=== PATIENT | male | born 1945 | race Caucasian/White ===

== ENCOUNTER → 2018-02-12 07:55 | Outpatient (CLI) | payer MEDICARE, OTHER, SELFPAY ==
--- NOTE | 2018-02-12 07:57 | DI.MRI.S_ITS ---
PROCEDURE: MR LUMBAR SPINE WO CON INDICATIONS: low back pain TECHNIQUE: Noncontrast sagittal T1 spin echo and T2 fast echo, sagittal STIR, axial T1 and T2 fast spin echo through the lumbar spine. In this patient, oblique coronal images were also obtained through the sacrum. COMPARISON: [facility], CR, L-SPINE 6V INCLUDING BENDING, 08/12/2013, 15:43. [facility], CR, XR LUMBAR SPINE MIN 4V, 02/12/2018, 8:55. FINDINGS: Image quality: Excellent. Alignment and Curvature: Moderate grade 1 anterolisthesis is seen at the L5-S1 level. There is a pars defect seen on the left (series 3 image 12), yet no right pars defect is seen at L5. Minimal retrolisthesis is seen at the T12-L1, L1-L2, L2-L3, and the L3-L4 levels. Minimal anterolisthesis is seen at the L4-L5 level. Bone Marrow: Marrow is of normal overall signal. No acute vertebral body compression fractures. Mild anterior wedge deformities are seen involving the T9-T12 levels. Spinal Cord: Conus medullaris terminates at the L1 level. Visualized cord demonstrates normal signal and size. Paraspinous Soft Tissues: No paravertebral masses. T12-L1: Moderate loss of disc height is seen. Loss of disc signal is seen. Moderate disc bulge is seen, which is eccentric left. Moderate bilateral neural foraminal narrowing is seen, right worse than left. L1-L2: The disc height is well-preserved. Loss of disc signal is seen at this level. Reactive marrow endplate changes are seen which are hypointense on T1-weighted imaging and hyperintense on T2 weighted imaging, which is most consistent with edema (Modic type I changes). Mild to moderate disc bulge is seen at this level. There is moderate right-sided and moderate to severe left-sided neural foraminal narrowing seen. A degree of impingement is seen upon the exiting left L1 nerve root. Mild central canal narrowing is seen. L2-L3: The disc height is well-preserved. Loss of disc signal is seen at this level. Moderate disc bulge is seen, which is eccentric to the right. Mild to moderate facet hypertrophy is seen. There is at least moderate bilateral neural foraminal narrowing seen, right worse than left. A mild degree of impingement can be seen on exiting right L2 nerve root. Mild to moderate central canal narrowing is seen. L3-L4: The disc height is well-preserved. Loss of disc signal is seen at this level. Moderate loss of disc height is seen. Loss of disc signal is seen. Moderate to prominent facet hypertrophy is seen. There is at least moderate bilateral neural foraminal narrowing seen, left worse than right. Moderate central canal narrowing is seen. L4-L5: Mild loss of disc height is seen. Loss of disc signal is seen. Moderate generalized disc bulge is seen. Prominent facet hypertrophy is seen at this level. There is moderate right-sided and moderate to severe left-sided neural foraminal narrowing seen. A degree of impingement can be seen upon the exiting left L4 nerve root. Moderate central canal narrowing is seen. L5-S1: Moderate to severe loss of disc height and disc signal are again mild to moderate disc bulge is seen. At least moderate bilateral neural foraminal narrowing seen. There is a degree of impingement seen upon the exiting nerve roots. Moderate central canal narrowing is seen. Sacrum: No abnormal sacral bone marrow signal can be seen. No sacral deformity is seen. The visualized sacral plexus is unremarkable. IMPRESSION: Multiple levels of lumbar spine degenerative change are seen, which are overall most prominent at the L5-S1 level. Dictated by: Juan Luis Wellington M.D. on 02/12/2018 at 8:55 Approved by: Juan Luis Wellington M.D. on 02/12/2018 at 9:04
--- NOTE | 2018-02-12 09:19 | DI.RAD.S_ITS ---
PROCEDURE: XR LUMBAR SPINE MIN 4V INDICATIONS: SPONDYLOSIS TECHNIQUE: 5 views of the lumbar spine were acquired. COMPARISON: [facility], MR, MR LUMBAR SPINE WO CON, 02/12/2018, 8:24. [facility], CR, L-SPINE 6V INCLUDING BENDING, 08/12/2013, 15:43. FINDINGS: Bones: There are 5 lumbar-type vertebral bodies. The lowest intervertebral disk space is designated as L5-S1. The vertebral body heights are well-maintained without evidence to suggest an acute compression fracture. The bone mineralization is within normal limits. Severe multilevel degenerative changes of the lumbar spine are more prominent involving the lower lumbar facet joints. Prominent areas of disc height loss and disc osteophyte complexes are present. There is grade 1 anterolisthesis of L4 and L5 and L5 on S1. There probably are unilateral left pars defects at L4 and L5. However, please note that the pars interarticularis regions at these locations are difficult to evaluate given the degree of degenerative change. No definitive pars defects on the right at L4 and L5 are evident. Moderate degenerative changes of the sacroiliac joints are present. There are degenerative changes of the pubis symphysis. Mild degenerative changes of the hips are present. Soft tissues: The soft tissues of the imaged abdomen and pelvis are within normal limits. IMPRESSION: 1. Severe degenerative changes of the lumbar spine. 2. Grade 1 spondylolisthesis of L4/5 and L5/S1 may be related to unilateral left L4 and L5 pars defects. Dictated by: Jesu Montgomery M.D. on 02/13/2018 at 8:32 Approved by: Jesu Montgomery M.D. on 02/13/2018 at 8:38
== END ==
PROVIDERS: PCP Internal Medicine; Visit Provider Physical Medicine & Rehabilitation
DX: M47.27 Other spondylosis with radiculopathy, lumbosacral region (principal); M48.062 Spinal stenosis, lumbar region with neurogenic claudication; M54.5 Low back pain; M43.16 Spondylolisthesis, lumbar region; M43.17 Spondylolisthesis, lumbosacral region; M51.17 Intervertebral disc disorders with radiculopathy, lumbosacral region; M51.16 Intervertebral disc disorders with radiculopathy, lumbar region
CPT/HCPCS: 72110; 72148

== ENCOUNTER 2018-03-03 13:43 | Outpatient (CLI) | payer MEDICARE, OTHER, SELFPAY ==
[2018-03-03] VITALS (11 sets, daily range): BP systolic 106–127; BP diastolic 51–89; PULSE 60–66; RESP 16–18; TEMP 36.7; O2SAT 95–100
--- NOTE | 2018-03-03 13:45 | DI.RAD.S_ITS ---
PROCEDURE: PAIN L INTERLAMINAR/CAUDAL INJ INDICATIONS: SPINAL STENOSIS FINDINGS: Fluoroscopic spot filming was performed to verify placement of spinal needles at the L4-5 dorsal midline level(s), as labeled on the films. Appropriate location(s) of the needle tip(s) was confirmed by injection of iodinated contrast. IMPRESSION: Successful dorsal midline translaminar needle tip localization for epidural steroid injection dorsally. Dictated by: Mihai Hernandez M.D. on 03/03/2018 at 16:36 Approved by: Mihai Hernandez M.D. on 03/03/2018 at 16:36
--- NOTE | 2018-03-03 13:46 | PM.PROC.1 ---
Procedures Date/Time Date of procedure: 03/03/18 Time of procedure: 14:04 General Procedure description: PROVIDER: Jose Martinez DO Operative Note PREOP DIAGNOSIS 1. HNP WITH RADICULAR FEATURES, 2. MULTILEVEL CENTRAL STENOSIS, POST OP DIAGNOSIS 1. HNP WITH RADICULAR FEATURES, 2. MULTILEVEL CENTRAL STENOSIS PROCEDURES 1. FLUORSCOPICALLY GUIDED CONTRAST CONTROLLED INTERLAMINAR EPIDURAL STEROID INJECTION -L4/5 PHYSICIAN: Jose Martinez DO INDICATIONs: Dean is referred by Dr. Wade for treatment of Bilateral Foraminal Stenosis R>L LE symptoms. FINDINGS Multilevel Central Spinal Stenosis with Nerve Root Compression DESCRIPTION OF PROCEDURE Fluoroscopically guided, contrast-controlled L4/5 translaminar epidural steroid injection. Following denial of allergy and review of potential side effects and complications, including, but not necessarily limited to, infection, allergic reaction, local tissue breakdown, temporary as well as permanent nerve injury, paralysis, stroke and possible , the patient indicated that the patient understood and agreed to proceed. An informed consent document was signed by the patient, witnessed by a nurse, and placed in the patient's chart. Additionally, other treatment options including modalities, medications, and physical therapy were reviewed with the patient. After review of previous anaesthesic history and IV conscious sedation the patient was deemed safe to proceed with todays procedure with IV conscious sedation as ASA class II designation. Safety time-out was performed to confirm patient ID, procedure to be performed and site of procedure. IV sedation was accomplished with a combination of 4mg was administered by the RN after DO order, titrated to patient comfort during the course of the procedure while the patient remained responsive to all verbal commands In the prone position, following sterile prep and drape of the lumbar region, the L4/5 translaminar space was identified fluoroscopically. The skin was anesthetized via a 25-gauge, 1.5-inch needle with 1% lidocaine solution. At this point, a 22-gauge short bevel spinal needle was atraumatically introduced and advanced under fluoroscopic guidance into the region of the L4/5 translaminar space. Depth was confirmed on lateral view. Radiological data, including multiple fluoroscopic views of the lumbar spine, reveal a spinal needle at the L4/5 translaminar space. Lateral views then show placement of the needle in the epidural space. Subsequent views show contrast material flowing superiorly and inferiorly in the epidural space. No vascular or intrathecal uptake is observed. At this point, using loss of resistance technique with saline and air, the epidural space was entered. This was confirmed following negative aspiration with injection of approximately 1.5 cc of Isovue 200, showing excellent epidural flow without vascular or intrathecal uptake. At this point, 1 cc of 1% lidocaine solution combined with 3 cc or 20 mg of dexamethasone and 80mg Depo medrol was injected without incident. The patient tolerated the procedure well without signs or symptoms of complications prior to transfer to the recovery area continued monitoring without incident. The patient was then transferred to the recovery area where they were observed for an appropriate period of time after the injection. The patient reported a VAS score of 6 prior to the procedure and a post-procedure VAS of 0. Total Fluoroscopy Time: 11.8 seconds, 8.99 mGy Total Conscious Sedation Time: 24min POST OP INSTRUCTIONS The patient was provided a Pain Log to continue to record their response to the target-specific procedure prior to follow-up visit with their referring physician. Additionally, specific post-injection care instructions and a contact number to our office were provided if concerns arise regarding possible complications associated with the procedure are suspected. Jose Martinez, DO Complications: none
--- NOTE | 2018-03-03 14:07 | P.PCN_ITS ---
Procedures Date/Time Date of procedure: 03/03/18 Time of procedure: 14:04 General Procedure description: PROVIDER: Jose Martinez DO Operative Note PREOP DIAGNOSIS 1. HNP WITH RADICULAR FEATURES, 2. MULTILEVEL CENTRAL STENOSIS, POST OP DIAGNOSIS 1. HNP WITH RADICULAR FEATURES, 2. MULTILEVEL CENTRAL STENOSIS PROCEDURES 1. FLUORSCOPICALLY GUIDED CONTRAST CONTROLLED INTERLAMINAR EPIDURAL STEROID INJECTION -L4/5 PHYSICIAN: Jose Martinez DO INDICATIONs: Dean is referred by Dr. Wade for treatment of Bilateral Foraminal Stenosis R>L LE symptoms. FINDINGS Multilevel Central Spinal Stenosis with Nerve Root Compression DESCRIPTION OF PROCEDURE Fluoroscopically guided, contrast-controlled L4/5 translaminar epidural steroid injection. Following denial of allergy and review of potential side effects and complications, including, but not necessarily limited to, infection, allergic reaction, local tissue breakdown, temporary as well as permanent nerve injury, paralysis, stroke and possible , the patient indicated that the patient understood and agreed to proceed. An informed consent document was signed by the patient, witnessed by a nurse, and placed in the patient's chart. Additionally, other treatment options including modalities, medications, and physical therapy were reviewed with the patient. After review of previous anaesthesic history and IV conscious sedation the patient was deemed safe to proceed with todays procedure with IV conscious sedation as ASA class II designation. Safety time-out was performed to confirm patient ID, procedure to be performed and site of procedure. IV sedation was accomplished with a combination of 4mg was administered by the RN after DO order , titrated to patient comfort during the course of the procedure while the patient remained responsive to all verbal commands In the prone position, following sterile prep and drape of the lumbar region, the L4/5 translaminar space was identified fluoroscopically. The skin was anesthetized via a 25-gauge, 1.5-inch needle with 1% lidocaine solution. At this point, a 22-gauge short bevel spinal needle was atraumatically introduced and advanced under fluoroscopic guidance into the region of the L4/5 translaminar space. Depth was confirmed on lateral view. Radiological data, including multiple fluoroscopic views of the lumbar spine, reveal a spinal needle at the L4/5 translaminar space. Lateral views then show placement of the needle in the epidural space. Subsequent views show contrast material flowing superiorly and inferiorly in the epidural space. No vascular or intrathecal uptake is observed. At this point, using loss of resistance technique with saline and air, the epidural space was entered. This was confirmed following negative aspiration with injection of approximately 1.5 cc of Isovue 200, showing excellent epidural flow without vascular or intrathecal uptake. At this point, 1 cc of 1 % lidocaine solution combined with 3 cc or 20 mg of dexamethasone and 80mg Depo medrol was injected without incident. The patient tolerated the procedure well without signs or symptoms of complications prior to transfer to the recovery area continued monitoring without incident. The patient was then transferred to the recovery area where they were observed for an appropriate period of time after the injection. The patient reported a VAS score of 6 prior to the procedure and a post- procedure VAS of 0. Total Fluoroscopy Time: 11.8 seconds, 8.99 mGy Total Conscious Sedation Time: 24min POST OP INSTRUCTIONS The patient was provided a Pain Log to continue to record their response to the target-specific procedure prior to follow-up visit with their referring physician. Additionally, specific post-injection care instructions and a contact number to our office were provided if concerns arise regarding possible complications associated with the procedure are suspected. Jose Martinez, DO Complications: none
[2018-03-03] MEDS: MIDAZOLAM 5 MG/5 ML VIAL IV (14:30)
[2018-03-03] MEDS: IOPAMIDOL 15 ML VIAL 3 ML INJ (14:34)
[2018-03-03] MEDS: BUPIVACAINE 0.25% (PF) VIAL 2 ML INJ (14:34)
[2018-03-03] MEDS: methylPREDNISolone acetate 80 MG/ML VIAL INJ (14:35)
[2018-03-03] MEDS: DEXAMETHASONE 10 MG/ML VIAL 20 MG INJ (14:35)
--- NOTE | 2018-03-03 14:37 | PC.NURSE ---
transport to post op area, stable condition, via w/c
--- NOTE | 2018-03-03 15:00 | PC.NURSE ---
pt arrived via wheelchair, awake and able to transfer from W/C to chair. pt able to drink coffee and reports pain relief.
== END 2018-03-03 15:15 ==
LOC: RAD 13:44
PROVIDERS: PCP Internal Medicine; Visit Provider Physical Medicine & Rehabilitation
DX: M48.062 Spinal stenosis, lumbar region with neurogenic claudication (principal); M51.16 Intervertebral disc disorders with radiculopathy, lumbar region
CPT/HCPCS: 62323; 99152; J1040; J1100; J2250

== ENCOUNTER → 2018-04-03 15:58 | Outpatient (CLI) | payer MEDICARE, OTHER, SELFPAY ==
--- NOTE | 2018-04-03 16:00 | DI.RAD.S_ITS ---
PROCEDURE: XR CERVICAL SPINE 4V OR 5V INDICATIONS: eval TECHNIQUE: 5 views of the cervical spine acquired. COMPARISON: None. FINDINGS: Bones: No fractures or dislocations to the C7 level. There is moderate degenerative disc disease at C3-C4, C5-C6 and C6-C7. Bilateral facet arthropathy scattered in cervical spine. Oblique images demonstrate mild bony foraminal stenoses at C6-C7 bilaterally. Soft tissues: No prevertebral soft tissue swelling. IMPRESSION: 1. Degenerative disc and facet disease. 2. Mild bilateral foraminal stenosis at C6-C7. Dictated by: Macarena Umanzor M.D. on 04/03/2018 at 17:01 Approved by: Macarena Umanzor M.D. on 04/03/2018 at 17:03
== END ==
PROVIDERS: PCP Internal Medicine; Visit Provider Physical Medicine & Rehabilitation
DX: M47.812 Spondylosis without myelopathy or radiculopathy, cervical region (principal); M50.31 Other cervical disc degeneration, high cervical region; M48.02 Spinal stenosis, cervical region
CPT/HCPCS: 72050

== ENCOUNTER 2018-04-28 09:31 | Outpatient (CLI) | payer MEDICARE, OTHER, SELFPAY ==
[2018-04-28] VITALS (9 sets, daily range): BP systolic 107–147; BP diastolic 57–77; PULSE 57–85; RESP 16–21; TEMP 35.8; O2SAT 93–99
--- NOTE | 2018-04-28 09:33 | DI.RAD.S_ITS ---
PROCEDURE: PAIN L/S TRANSFORAMINAL INJECT INDICATIONS: SPINAL STENOSIS FINDINGS: Fluoroscopic spot filming was performed to verify placement of spinal needles at the L4-L5 level(s), as labeled on the films. Appropriate location(s) of the needle tip(s) was confirmed by injection of iodinated contrast. Dictated by: Francisco Moore M.D. on 04/28/2018 at 14:09 Approved by: Francisco Moore M.D. on 04/28/2018 at 14:09
[2018-04-28] MEDS: MIDAZOLAM 5 MG/5 ML VIAL IV (10:18)
[2018-04-28] MEDS: IOPAMIDOL 15 ML VIAL 3 ML INJ (10:24)
[2018-04-28] MEDS: BUPIVACAINE 0.25% (PF) VIAL 2 ML INJ (10:24)
[2018-04-28] MEDS: DEXAMETHASONE 10 MG/ML VIAL 20 MG INJ (10:25)
[2018-04-28] MEDS: methylPREDNISolone acetate 80 MG/ML VIAL INJ (10:25)
--- NOTE | 2018-04-28 10:42 | PC.NURSE ---
pt tolerated procedure well, assisted off table with one person stand by assist. pt alert. Taken via w/c to pre procedure room for continued monitoring with Jojo IZAGUIRRE
--- NOTE | 2018-04-28 10:46 | P.PCN_ITS ---
Procedures Date/Time Date of procedure: 04/28/18 Time of procedure: 10:45 General Procedure description: PREOP DIAGNOSIS 1. FORMAINAL STENOSIS WITH LE SYMPTOMS POST OP DIAGNOSIS 1. FORMAINAL STENOSIS WITH LE SYMPTOMS PROCEDURES 1. FLUOROSCOPICALLY GUIDED CONTRAST CONTROLLED TRANSFORAMINAL EPIDURAL STEROID INJECTION - LEFT L4/5 PHYSICIAN: Jose Martinez DO INDICATIONS: Dean is referred by for treatment of Foraminal Stenosis with Left LE Symptoms FINDINGS Foraminal Nerve Root Compression secondary to disc disease and facet hypertrophy DESCRIPTION OF PROCEDURE: Following denial of allergy and review of potential side effects and complications, including, but not necessarily limited to, infection, allergic reaction, local tissue breakdown, stroke, temporary or permanent nerve injury, paralysis, and possible , the patient indicated that the patient understood and agreed to proceed. An informed consent document was signed by the patient, witnessed by a nurse, and placed in the patient's chart. Additionally, other treatment options including medications, modalities, and physical therapy were reviewed with the patient. After review of previous anaesthesic history and IV conscious sedation the patient was deemed safe to proceed with todays procedure with IV conscious sedation as ASA class II designation. Safety time-out was performed to confirm patient ID, procedure to be performed and site of procedure. IV sedation was accomplished with a combination of 5mg of Versed administered by the RN after DO order, titrated to patient comfort during the course of the procedure while the patient remained responsive to all verbal commands In the prone position following sterile prep and drape of the lumbar region, the left L4/5 posterior neuroforamen was identified fluoroscopically. The skin was anesthetized via a 25-gauge 1.5-inch needle with 1% lidocaine solution. At this point, a 25-gauge 3.5-inch spinal needle was atraumatically introduced and advanced under fluoroscopic guidance through the posterior left L4/5 neuroforamen to approximately the anterior aspect of the canal. Depth was confirmed on lateral view. Following negative aspiration, injection of approximately 1.5 cc of Isovue 200 under live fluoroscopy in the AP view confirmed excellent flow along the nerve root, into the epidural space without vascular or intrathecal uptake observed Radiological data, including multiple fluoroscopic views of the lumbosacral spine, reveal a spinal needle at the left L4/5 posterior neuroforamen. Subsequent views show flow of contrast material flowing superiorly and inferiorly along the nerve root confirming epidural flow. Subsequently, a test dose of 1.5 cc of 1% lidocaine solution was administered and patient was observed for two minutes for signs or symptoms of complications , including abdominal pain, shortness of breath, bilateral upper or lower extremity weakness, nausea and vomiting, prior to steroid injection. At this point, a total of 3 cc or 20 mg of dexamethasone and 80mg Depo Medrol was injected without incident. The procedure tolerated the procedure well without signs or symptoms of complications prior to transfer to the recovery area continued monitoring without incident. The patient was then transferred to the recovery area where they were observed for an appropriate time after the injection. The patient reported a VAS score of 7 prior to the procedure and a post- procedure VAS of 0. Total Fluoroscopy Time: 20.9 seconds Total Conscious Sedation Time: 24min POST OP INSTRUCTIONS The patient was provided a Pain Log to continue to record their response to the target-specific procedure prior to follow-up visit with their referring physician. Additionally, specific post-injection care instructions and a contact number to our office were provided if concerns arise regarding possible complications associated with the procedure are suspected. Jose Martinez DO Complications: none
--- NOTE | 2018-04-29 17:14 | PC.NURSE ---
Follow up call made post one day injection. He was ecstatic to get 6 hours of sleep last night without his feet bothering him once. He was a little concerned that he couldn't remember part of yesterday's visit here for the injection. I reassured him it was related to the medication we gave him that it has that kind of side effect.
== END 2018-04-28 11:16 | disposition home or self-care (01) ==
PROVIDERS: PCP Internal Medicine; Visit Provider Physical Medicine & Rehabilitation
DX: M48.062 Spinal stenosis, lumbar region with neurogenic claudication (principal); M51.16 Intervertebral disc disorders with radiculopathy, lumbar region; M43.17 Spondylolisthesis, lumbosacral region; M47.27 Other spondylosis with radiculopathy, lumbosacral region
CPT/HCPCS: 64483; 99152; 99153; J1040; J1100; J2250

== ENCOUNTER 2018-12-31 10:21 | Outpatient (CLI) | payer MEDICARE, OTHER, SELFPAY ==
[2018-12-31] VITALS (7 sets, daily range): BP systolic 106–137; BP diastolic 50–78; PULSE 58–69; RESP 16; TEMP 36.4; O2SAT 93–97
--- NOTE | 2018-12-31 10:22 | DI.RAD.S_ITS ---
PROCEDURE: PAIN L INTERLAMINAR/CAUDAL INJ INDICATIONS: RADICULOPATHY FINDINGS: Fluoroscopic spot filming was performed to verify placement of spinal needles at the L5-S1 level(s), as labeled on the films. Appropriate location(s) of the needle tip(s) was confirmed by injection of iodinated contrast. Dictated by: Francisco Moore M.D. on 12/31/2018 at 12:13 Approved by: Francisco Moore M.D. on 12/31/2018 at 12:13
[2018-12-31] MEDS: MIDAZOLAM 5 MG/5 ML VIAL IV (11:10)
[2018-12-31] MEDS: fentaNYL 100 MCG/2 ML INJ 50 MCG IV (11:10)
[2018-12-31] MEDS: BETAMETHASONE 30 MG/5 ML MDV 6 MG INJ (11:18)
[2018-12-31] MEDS: DEXAMETHASONE 10 MG/ML VIAL 20 MG INJ (11:18)
[2018-12-31] MEDS: IOPAMIDOL 15 ML VIAL 3 ML INJ (11:18)
[2018-12-31] MEDS: BUPIVACAINE 0.25% (PF) VIAL 2 ML INJ (11:18)
--- NOTE | 2018-12-31 11:29 | PC.NURSE ---
pt tolerated procedure well. Able to get off the table with 2 person standby assist. Transferred pt to pre procedure room for continued monitoring with me. We arrived at 1136.
--- NOTE | 2018-12-31 11:32 | PM.PROC.1 ---
Procedures Date/Time Date of procedure: 12/31/18 Time of procedure: 11:32 General Procedure description: PROVIDER: Jose Martinez DO Operative Note PREOP DIAGNOSIS 1. HNP WITH RADICULAR FEATURES, 2. MULTILEVEL CENTRAL STENOSIS, POST OP DIAGNOSIS 1. HNP WITH RADICULAR FEATURES, 2. MULTILEVEL CENTRAL STENOSIS, PROCEDURES 1. FLUORSCOPICALLY GUIDED CONTRAST CONTROLLED INTERLAMINAR EPIDURAL STEROID INJECTION - L5/S1 PHYSICIAN: Jose Martinez DO INDICATIONS Dean is referred by for treatment of Bilateral Foraminal Stenosis L>R LE symptoms. FINDINGS Multilevel Central Spinal Stenosis with Nerve Root Compression DESCRIPTION OF PROCEDURE Fluoroscopically guided, contrast-controlled L5/S1 translaminar epidural steroid injection. Following review of allergy and review of potential side effects and complications, including, but not necessarily limited to, infection, allergic reaction, local tissue breakdown, temporary as well as permanent nerve injury, paralysis, stroke and possible , the patient indicated that the patient understood and agreed to proceed. An informed consent document was signed by the patient, witnessed by a nurse, and placed in the patient's chart. Additionally, other treatment options including modalities, medications, and physical therapy were reviewed with the patient. After review of previous anaesthesic history and IV conscious sedation the patient was deemed safe to proceed with todays procedure with IV conscious sedation as ASA class II designation. Safety time-out was performed to confirm patient ID, procedure to be performed and site of procedure. IV sedation was accomplished with a combination of 3mg of Versed and 50mcg of Fentanyl administered by the RN after DO order, titrated to patient comfort during the course of the procedure while the patient remained responsive to all verbal commands. In the prone position, following sterile prep and drape of the lumbar region, the L5/S1 translaminar space was identified fluoroscopically. The skin was anesthetized via a 25-gauge, 1.5-inch needle with 1% lidocaine solution. At this point, a 22-gauge short bevel spinal needle was atraumatically introduced and advanced under fluoroscopic guidance into the region of the L5/S1 translaminar space. Depth was confirmed on lateral view. Radiological data, including multiple fluoroscopic views of the lumbar spine, reveal a spinal needle at the L5/S1 translaminar space. Lateral views then show placement of the needle in the epidural space. Subsequent views show contrast material flowing superiorly and inferiorly in the epidural space. No vascular or intrathecal uptake is observed. At this point, using loss of resistance technique with saline and air, the epidural space was entered. This was confirmed following negative aspiration with injection of approximately 1.5 cc of Isovue 200, showing excellent epidural flow without vascular or intrathecal uptake. At this point, 1 cc of 1% lidocaine solution combined with 2cc or 20mg of dexamethasone was injected without incident. The patent tolerated the procedure without signs of symptoms of complications prior to transfer to the recovery area for further monitoring. The patient was then transferred to the recovery area where they were observed for an appropriate period of time after the injection. The patient reported a VAS score of 6 prior to the procedure and a post-procedure VAS of 0. Total Fluoroscopy Time: 11.8 seconds Total Conscious Sedation Time: 24min POST OP INSTRUCTIONS The patient was provided a Pain Log to continue to record their response to the target-specific procedure prior to follow-up visit with their referring physician. Additionally, specific post-injection care instructions and a contact number to our office were provided if concerns arise regarding possible complications associated with the procedure are suspected. Jose Martinez DO Complications: none
== END 2018-12-31 12:10 | disposition home or self-care (01) ==
LOC: RAD 10:22
PROVIDERS: PCP Internal Medicine; Visit Provider Physical Medicine & Rehabilitation
DX: M51.17 Intervertebral disc disorders with radiculopathy, lumbosacral region (principal); M48.07 Spinal stenosis, lumbosacral region; M47.27 Other spondylosis with radiculopathy, lumbosacral region
CPT/HCPCS: 62323; 99152; J0702; J1100; J2250; J3010

== ENCOUNTER → 2019-09-30 12:10 | Outpatient (CLI) | payer MEDICARE, OTHER, SELFPAY ==
--- NOTE | 2019-09-30 12:13 | DI.RAD.S_ITS ---
PROCEDURE: XR LUMBAR SPINE MIN 4V INDICATIONS: Lumbosacral spondylosis TECHNIQUE: 5 views of the lumbar spine were acquired. COMPARISON: [facility], MR, MR LUMBAR SPINE WO CON, 02/12/2018, 8:24. [facility], CR, XR LUMBAR SPINE MIN 4V, 02/12/2018, 8:55. FINDINGS: Bones: 5 nonrib-bearing vertebrae are present. Mild anterolisthesis of L4 on L5 and L5 on S1. L5 anterolisthesis measures approximately 1.1 cm, previously 0.8 cm. Minimal height loss of the T12 vertebral body similar to the prior exam. Multilevel disc space height loss most pronounced at T12-L1 and L1-L2. No suspicious bony lesions. Soft tissues: Overlying bowel gas pattern is normal. No suspicious soft tissue calcifications. Vascular calcifications. Oblique images: Left L5 pars defect better seen on prior MRI. IMPRESSION: Question of slight increased in anterolisthesis of L5 on S1. Moderate multilevel degenerative change. Dictated by: John Sharma M.D. on 09/30/2019 at 12:35 Approved by: John Sharma M.D. on 09/30/2019 at 12:41
== END ==
PROVIDERS: PCP Internal Medicine; Referring Provider Physical Medicine & Rehabilitation; Visit Provider Physical Medicine & Rehabilitation
DX: M43.17 Spondylolisthesis, lumbosacral region (principal); M43.16 Spondylolisthesis, lumbar region; M47.816 Spondylosis without myelopathy or radiculopathy, lumbar region
CPT/HCPCS: 72110

== ENCOUNTER → 2019-10-23 09:53 | Outpatient (CLI) | payer MEDICARE, OTHER, SELFPAY ==
[2019-10-24 07:32] LABS: COVID19 Sendout Not Detected (Not Detect)
== END ==
PROVIDERS: PCP Internal Medicine; Visit Provider Physician Assistant
DX: Z01.812 Encounter for preprocedural laboratory examination (principal)
CPT/HCPCS: 87635

== ENCOUNTER 2019-10-26 08:13 | Outpatient (CLI) | payer MEDICARE, OTHER, SELFPAY ==
[2019-10-26] VITALS (8 sets, daily range): BP systolic 101–133; BP diastolic 47–69; PULSE 55–64; RESP 15–16; TEMP 37.3; O2SAT 94–100
--- NOTE | 2019-10-26 08:15 | DI.RAD.S_ITS ---
PROCEDURE: PAIN L/SI FACET INJ/BLK 1STL INDICATIONS: SPONDYLOSIS FINDINGS: Fluoroscopic spot filming was performed to verify placement of spinal needles at the L4-L5, L5-S1 level(s), as labeled on the films. Appropriate location(s) of the needle tip(s) was confirmed by injection of iodinated contrast. Dictated by: Francisco Moore M.D. on 10/26/2019 at 10:33 Approved by: Francisco Moore M.D. on 10/26/2019 at 10:41
[2019-10-26] MEDS: fentaNYL 100 MCG/2 ML INJ 50 MCG IV (09:32)
[2019-10-26] MEDS: MIDAZOLAM 5 MG/5 ML VIAL IV (09:32)
[2019-10-26] MEDS: BUPIVACAINE 0.5% (PF) VIAL 2 ML INJ (09:37)
[2019-10-26] MEDS: IOPAMIDOL 15 ML VIAL 3 ML INJ (09:37)
[2019-10-26] MEDS: BETAMETHASONE 30 MG/5 ML MDV 12 MG INJ (09:38)
--- NOTE | 2019-10-26 09:39 | PC.NURSE ---
ASSISTING PT OFF TABLE AND TRANSPORTING TO POST PROC AREA IN STABLE CONDITION. PASSING RN CARE OF PT OFF TO DMITRIY GLASS.
--- NOTE | 2019-10-26 09:48 | P.PCN_ITS ---
Procedures Date/Time Date of procedure: 10/26/19 Time of procedure: 09:48 General Procedure description: PREOP DIAGNOSIS 1. FACET ARTHROPATHY, 2. AXIAL LBP, 3. MULTILEVEL DDD, POST OP DIAGNOSIS 1. FACET ARTHROPATHY, 2. AXIAL LBP, 3. MULTILEVEL DDD, PROCEDURES 1. FLUORSCOPICALLY GUIDED CONTRAST CONTROLLED FACET JOINT INJECTIONS RIGHT L4/5, L5/S1 SURGEON: DO EVITA Blackwood Dean is referred by for treatment of Axial LBP FINDINGS Multilevel Facet Arthropathy with Clinically significant axial LBP DESCRIPTION OF PROCEDURE Fluoroscopically guided, contrast-controlled right L4/5, L5/S1 facet joint injections. Following review of allergy and review of potential side effects and complications, including, but not necessarily limited to, infection, allergic reaction, local tissue breakdown, stroke, temporary or permanent nerve injury, paralysis, and possible , the patient indicated that the patient understood and agreed to proceed. An informed consent document was signed by the patient, witnessed by a nurse, and placed in the patient's chart. Additionally, other treatment options including medications, modalities, and physical therapy were reviewed with the patient. After review of previous anaesthesic history and IV conscious sedation the patient was deemed safe to proceed with todays procedure with IV conscious sedation as ASA class II designation. Safety time-out was performed to confirm patient ID, procedure to be performed and site of procedure. IV sedation was accomplished with a combination of 2mg of Versed and 50mcg of Fentanyl was administered by the RN after DO order, titrated to patient comfort during the course of the procedure while the patient remained responsive to all verbal commands. In the prone position, following sterile prep and drape of the lumbar region, the posterior aspect of the right L4/5, L5/S1 facet joints were identified fluoroscopically. The skin was anesthetized via a 25-gauge 1.5-inch needle with 1% lidocaine solution into the corresponding facet joints. At this point, a 22- gauge 3.5-inch spinal needle was atraumatically introduced and advanced under fluoroscopic guidance into the corresponding facet joints. Following negative aspiration, injections of approximately 0.2-cc of Isovue 200 confirmed interarticular placement without vascular uptake. Radiological data, including multiple fluoroscopic views of the lumbosacral spine, reveal a spinal needle at the right L4/5, L5/S1 facet joints. Subsequent views show flow of contrast material both superiorly and inferiorly within the joint space without vascular or intrathecal uptake. At this point, a total of 0.5 cc including a mixture of 0.25cc Marcaine and 0.25cc betamethasone was injected without complication into each of the corresponding facet joints. The procedure tolerated the procedure well without signs or symptoms of complications prior to transfer to the recovery area continued monitoring without incident. The patient was then transferred to the recovery area where they were observed for an appropriate period of time after the injection. The patient reported a VAS score of 7 prior to the procedure and a post-procedure VAS of 0. Total Fluoroscopy Time: 5seconds Total Conscious Sedation Time: 24min POST OP INSTRUCTIONS The patient was provided a Pain Log to continue to record their response to the target-specific procedure prior to follow-up visit with their referring physician. Additionally, specific post-injection care instructions and a contact number to our office were provided if concerns arise regarding possible complications associated with the procedure are suspected. Jose Martinez, Complications: none
--- NOTE | 2019-10-26 10:33 | PC.NURSE ---
arrived to pre proc room via [facility], assisted to chair by Jojo IZAGUIRRE. Resumed monitoring by DMITRIY Cassidy
== END 2019-10-26 10:08 | disposition home or self-care (01) ==
LOC: RAD 08:14
PROVIDERS: PCP Internal Medicine; Referring Provider Physical Medicine & Rehabilitation; Visit Provider Physical Medicine & Rehabilitation
DX: M47.816 Spondylosis without myelopathy or radiculopathy, lumbar region (principal); M47.817 Spondylosis without myelopathy or radiculopathy, lumbosacral region; M54.5 Low back pain
CPT/HCPCS: 64493; 64494; 99152; J0702; J2250; J3010

== ENCOUNTER → 2019-11-05 16:04 | Outpatient (CLI) | payer MEDICARE, OTHER, SELFPAY ==
--- NOTE | 2019-11-05 16:07 | DI.MRI.S_ITS ---
PROCEDURE: MR LUMBAR SPINE WO CON INDICATIONS: progressive LBP TECHNIQUE: Noncontrast sagittal T1 spin echo and T2 fast echo, sagittal STIR, axial T1 and T2 fast spin echo through the lumbar spine. In cases with scoliosis, additional coronal T2 fast spin echo may be performed. COMPARISON: [facility], MR, MR LUMBAR SPINE WO CON, 02/12/2018, 8:24. [facility], CR, XR LUMBAR SPINE MIN 4V, 09/30/2019, 12:08. FINDINGS: Image quality: Excellent. Alignment and Curvature: There is mild L4-L5 and L5-S1 anterolisthesis. There is mild T12-L1 and L1-L2 retrolisthesis. There is trace L2-L3 and L3-L4 retrolisthesis. Bone Marrow: Reactive endplate changes adjacent to the T12-L1, L1-L2, L4-L5 and L5-S1 discs. No acute vertebral body compression fractures. Spinal Cord: Conus medullaris terminates at the T12-L1 disc level. Visualized cord demonstrates normal signal and size. Paraspinous Soft Tissues: No paravertebral masses. T12-L1: Loss of disc signal and height. Moderate, diffuse disc bulge. Mild bilateral facet hypertrophy. Mild to moderate narrowing of the central canal. Moderate right and mild left neural foraminal narrowing. No neural compression. L1-L2: Loss of disc signal and height. Mild, diffuse disc bulge. Large central disc extrusion. Mild/moderate bilateral facet hypertrophy. Epidural lipomatosis. Severe narrowing of the central canal with compression of the nerve roots of the cauda equina. Moderate bilateral neural foraminal narrowing. L2-L3: Loss of disc signal. Mild, diffuse disc bulge. Mild to moderate bilateral facet hypertrophy. Moderate narrowing of the central canal. Moderate bilateral neural foraminal narrowing. No neural compression. L3-L4: Loss of disc signal. Mild, diffuse disc bulge. Mild to moderate bilateral facet hypertrophy. Moderate ligamentum flavum hypertrophy. Moderate to severe narrowing of the central canal. Moderate to severe right and moderate left neural foraminal narrowing. No neural compression. L4-L5: Loss of disc signal. Mild, diffuse disc bulge there is severe bilateral facet hypertrophy. Severe narrowing of the central canal with compression of the nerve roots of the cauda equina. Severe bilateral neural foraminal narrowing and compression of the exiting L4 nerve roots. L5-S1: Loss of disc signal and height. Mild, diffuse disc bulge. Moderate right and severe left facet hypertrophy. Left L5 pars interarticularis defect noted. No central stenosis. Severe bilateral neural foraminal narrowing with compression of the exiting bilateral L5 nerve roots. IMPRESSION: 1. Multilevel degenerative disc disease. 2. Multilevel facet arthropathy 3. Severe L1-L2 and L4-L5 central canal stenosis with compression of the nerve roots of cauda equina. Moderate to severe L3-L4 central canal narrowing. 4. Severe bilateral L4-L5 and L5-S1 neural foraminal narrowing with compression of the exiting bilateral L4 nerve roots and exiting bilateral L5 nerve roots. 5. Large L1-L2 central disc extrusion. 6. T12-L1, L1-L2 L4-L5 and L5-S1 degenerative spondylolisthesis. Dictated by: Zarina Duval MD, PhD on 11/05/2019 at 17:04 Approved by: Zarina Duval MD, PhD on 11/05/2019 at 17:11
== END ==
PROVIDERS: PCP Internal Medicine; Referring Provider Physical Medicine & Rehabilitation; Visit Provider Physical Medicine & Rehabilitation
DX: M54.5 Low back pain (principal); M48.061 Spinal stenosis, lumbar region without neurogenic claudication; M48.07 Spinal stenosis, lumbosacral region; M51.16 Intervertebral disc disorders with radiculopathy, lumbar region; M51.17 Intervertebral disc disorders with radiculopathy, lumbosacral region; M47.26 Other spondylosis with radiculopathy, lumbar region; M47.27 Other spondylosis with radiculopathy, lumbosacral region
CPT/HCPCS: 72148

== ENCOUNTER → 2019-12-16 13:43 | Outpatient (CLI) | payer MEDICARE, OTHER, SELFPAY ==
--- NOTE | 2019-12-16 | DI.MRI.S_ITS ---
PROCEDURE: MR KNEE RT WO CON INDICATIONS: Other tear of medial meniscus. Right knee pain TECHNIQUE: Noncontrast sagittal PD fast spin echo and T2 fast spin echo with fat saturation, sagittal 3-D FLASH with fat saturation; coronal T1 spin echo and PD fast spin echo with fat saturation, and axial PD fast spin echo with fat saturation through the knee. COMPARISON: None. FINDINGS: Image quality: Excellent. Menisci: Ill-defined macerated tear involving the body and posterior horn of the medial meniscus. There is partial extrusion and abnormal signal which extends to the inferior surface. There is also truncation of the free margin. Lateral meniscus intact. Cruciate ligaments: Anterior cruciate ligament appears intact. Posterior cruciate ligament appears intact. Medial structures: There is medial bowing of the medial collateral ligament, with mild internal signal changes and no complete rupture. There is adjacent soft tissue edema. The appearance could reflect reactive changes to medial compartment pathology, versus low-grade sprain of the MCL. Pes anserinus tendons appear grossly unremarkable. Semimembranosus tendon appears intact. Lateral structures: The lateral collateral ligament intact. Biceps femoris tendon appears intact. Popliteus tendon grossly unremarkable. Iliotibial band appears intact. Anterior structures: Quadriceps tendon intact. Medial and lateral patellofemoral ligaments intact. There is mild patellar tendinopathy. Prepatellar and superficial infrapatellar subcutaneous edema/fluid. Bones and cartilage: Within the medial compartment, areas of full thickness articular cartilage loss overlying the femur and tibia. There is reactive subchondral marrow edema. There is also subchondral marrow signal changes measuring approximately 5 mm raising the possibility of a small osteochondral defect involving the medial femoral condyle. Within the lateral compartment, mild diffuse surface fraying of the femoral and tibial articular cartilage without focal defect. Within the patellofemoral compartment, mild surface fraying of the cartilage overlying the lateral patellar facet. Joint space: Large joint effusion. Trace fluid between the semimembranosus and medial gastrocnemius without definite form cyst. No specific evidence of intra-articular loose body. IMPRESSION: Ill-defined complex tear involving the posterior horn and body of the medial meniscus with partial extrusion. Degenerative joint disease, most pronounced in the medial compartment. Large joint effusion. Patellar tendinopathy Small 5 mm subchondral marrow signal changes involving the medial femoral condyle raising possibility of superimposed small osteochondral defect/insufficiency fracture. Large joint effusion. Dictated by: Francisco Moore M.D. on 12/16/2019 at 15:47 Approved by: Francisco Moore M.D. on 12/16/2019 at 15:54
== END ==
PROVIDERS: PCP Internal Medicine; Referring Provider Orthopaedic Surgery; Visit Provider Orthopaedic Surgery
DX: S83.231A Complex tear of medial meniscus, current injury, right knee, initial encounter (principal); M25.561 Pain in right knee; M17.11 Unilateral primary osteoarthritis, right knee; M25.461 Effusion, right knee
CPT/HCPCS: 73721

== ENCOUNTER → 2020-03-25 09:39 | Outpatient (CLI) | payer MEDICARE, OTHER, SELFPAY ==
[2020-03-27 08:01] LABS: COVID19 Sendout Not Detected (Not Detect)
== END ==
PROVIDERS: PCP Internal Medicine; Visit Provider Physician Assistant
DX: Z11.59 Encounter for screening for other viral diseases (principal)
CPT/HCPCS: 87635

== ENCOUNTER 2020-03-28 06:13 | Inpatient (IN) | payer MEDICARE, OTHER, SELFPAY ==
[2020-03-22 13:58] VITALS: BMI 37.8
[2020-03-28] VITALS (18 sets, daily range): BP systolic 99–145; BP diastolic 43–75; PULSE 48–71; RESP 10–18; TEMP 35.7–36.6; O2SAT 91–97; BMI 37.8; BMI 38.2
--- NOTE | 2020-03-28 | DI.RAD.S_ITS ---
PROCEDURE: XR LUMBAR SPINE 2-3V INDICATIONS: L4-5, L5-S1 TLIF TECHNIQUE: 4 views of the lumbar spine were acquired. COMPARISON: [facility], MR, MR LUMBAR SPINE WO CON, 11/05/2019, 16:22. [facility], MR, MR KNEE RT WO CON, 12/16/2019, 13:50. [facility], CR, XR LUMBAR SPINE MIN 4V, 09/30/2019, 12:08. [facility], CR, XR LUMBAR SPINE MIN 4V, 02/12/2018, 8:55. FINDINGS: Bones: Postoperative evaluation during the performance of posterior fixation crossing from L4 through S1 utilizing transverse pedicle screws and vertical fixation rods. The initial imaging shows frontal and lateral projections documenting the placement of the posterior fixation devices and 2 interbody cage disc prosthesis devices at L4-5 and L5-S1, respectively. The 3rd image shows a metallic probe overlying the posterior elements at L1-2, just dorsal to the facet joint level. The final 5th image is partially obscured by radiodense material/devices from the L1-2 level inferiorly, with the metallic probe tip exactly at the midline from right-sided approach. Soft tissues: Overlying bowel gas pattern is normal. No suspicious soft tissue calcifications. IMPRESSION: Postoperative imaging as discussed, with initial views documenting placement of posterior fixation devices and interbody disc cage prosthesis devices crossing from L4 through S1. Subsequent additional localization at the dorsal L1-2 facet joint area near the midline from right-sided approach. Dictated by: Mihai Hernandez M.D. on 03/28/2020 at 12:54 Approved by: Mihai Hernandez M.D. on 03/28/2020 at 13:05
--- NOTE | 2020-03-28 07:21 | PM.PREOP ---
Pre-operative Note COVID-19 COVID-19 status: Negative Result date/Date tested (Pos, Neg/Pending): 03/25/20 Interval Note History & Physical reviewed/Exam performed by Physician: Yes Changes to H&P: No
[2020-03-28] MEDS: LACTATED RINGERS 1,000 ML 42 ML IV ×2 (07:35→09:15)
--- NOTE | 2020-03-28 07:43 | PM.OP.1 ---
Operative Date/Time/Diagnoses Date of procedure: 03/28/20 Time of procedure: 12:33 Pre-op diagnosis: Lumbar stenosis with radiculopathy Lumbar spondylolisthesis Post-op diagnosis: same Procedure & Clinicians Procedure: L4-5, L5-S1 TLIF (posterior/posterior interbody fusion) with cages L4, L5, S1 screws Iliac crest bone graft aspirate L1-2, L4-5, L5-S1 laminectomies Use of microscope Placement of epidural catheter Same procedure as scheduled: Yes Indications: [age] year old male with intractable pain from stenosis. They had failed conservative management and requested operative intervention. Risks and benefits of surgery were discussed and appropriate consents were obtained. Surgeon: Tam White Poultry Packer: Carmina Causey Anesthesia Type: General Operative Notes Findings: None Closure Type: primary Specimen(s): none sent Prosthetic devices, grafts, tissues, transplants, or devices: NuVasive MAS Reline screws Globus Rise cage Applied: catheter Estimated Blood Loss (mL): 20 Procedure in detail: The patient was brought to the operating room and intubated on the table. A time-out was performed. They were then rolled over to the well-padded Cl table in the prone position. Preoperative antibiotics were given. The back was prepped and draped in the standard sterile fashion. Using fluoroscopy, a 4 cm longitudinal incision was made to the well marked right of the midline. We used Bovie to come down to and split the lumbodorsal fascia. Using fluoroscopy and monitoring, we then percutaneously placed Jamshidi needles down the pedicles of L4, L5, and S1 on the right side. These were changed out to guidewires and then we tapped and then placed the NuVasive MAS Reline screw shanks. We then opened up the retractors and used Bovie to clear up the posterolateral gutter at L5-S1 as well as medially along the lamina to the spinous processes. A bur was used to decorticate the transverse process and the sacral ala. We brought in the microscope. Using a combination of bur and Kerrison rongeurs, a laminectomy was performed from the right side. We cleared over past the midline and carefully depressed the dura until we were able to decompress the opposite side. We cleared out the neural foramen with facetectomy. This completed the laminectomy at L5-S1. This was separate and distinct from the TLIF approach as we were decompressing the foramen. We then began the TLIF prep. We carefully cleaned up the remainder of the foramen until we could easily retract the exiting root as well as clearing medially below the dura and expose the disc space. The disc was prepped with bipolar and then an annulotomy was performed. We performed a diskectomy using a combination of paddles, michael, pituitaries, and curettes. We distracted the disc using a paddle and locked the retractor in an open position. We then filled the disc space with Osteocel bone graft. We then placed the globus rise cage under fluoroscopy and then filled this in with more bone graft. The distraction on the retractor was released to compress down. This completed the posterior interbody fusion portion of the TLIF at L5-S1. We then went up to the L4-5 level. We opened up the retractor and cleared out the gutter and medially. We decorticated the transverse process of L4. We used a combination of bur and Kerrison rongeur is to perform a right-sided laminectomy at L4-5. We carefully depressed the dura and cleared across the midline to clean out the canal. We cleared out the neural foramen with a facetectomy. This completed the laminectomy at L4-5. This was separate and distinct from a TLIF approach as we had to decompress extremely stenotic canal and foramen. We did began this TLIF prep. We cleaned the remainder of the foramen until we could easily retract the nerve root. We retracted the dura medially and prep the disc with bipolar. An annulotomy was performed. We performed a discectomy with paddle Michael pituitaries and curettes. We distracted the disc using a paddle and locked retractor in open position. We filled the space with bone graft and placed a globus rise cage under fluoroscopy in fill this in with more bone graft. This traction on the retractor was released. This completed the posterior interbody fusion portion of the TLIF at L4-5. We then placed the screw heads, yu, and locked down the set screws. The wound was copiously irrigated. A small stab incision was made over the PSIS. We used a Jamshidi needle to aspirate several mL of bone marrow from the pelvis. This was mixed with the remaining Osteocel and combined with all of the locally harvested bone graft and placed in the posterolateral gutter for the posterior fusion of the TLIF at L4-5 and L5-S1. We then went to the opposite side. Again using fluoroscopy, a 3 cm incision was made and Bovie was used to come down to split the fascia. Using neural monitoring and fluoroscopy, Jamshidi needles were advanced down the pedicles of L4, L5, and S1 on the left side. These were switched over guidewires, tapped, and screws placed. We then placed a yu and locked the set screws on this side. The wound was irrigated. The fascia was closed. We then went up to the L1-2 level. Using fluoroscopy for localization we just want up extending the right-sided incision another 2 cm. We used Bovie to split the fascia more medially. We then bluntly dissected the muscle splitting approach and placed a retractor and opened this up. The soft tissue was cleared up and a marker was placed and an x-ray was taken to confirm positioning. We then did a laminectomy at L1-2 from the right side with a bur and Kerrison rongeur. We swept the ball probe to make sure everything was open. An epidural catheter was prepped with 4 mL 0.5% Marcaine, 100 mg fentanyl, 4 mg Duramorph, and 1 mg of Stadol. The epidural was placed underneath the remaining L1 lamina and advanced cephalad approximately 6 cm. The wound was irrigated. We then removed the retractor. The fascia was closed. The epidural was injected without resistance and pulled. Vancomycin powder was placed in the wounds. The superficial and skin were closed. A sterile dressing was placed. The patient was then rolled over. He had not made urine during the case and just put a little bit of blood after the initial catheterization. The catheter was flushed during surgery with no urine output and then once he was rolled over to supine we flushed this again with no output. Dr. Simpson came to examine him with cystoscopy and placed a new Martinez catheter without any difficulty. Plan is to keep him on 48 hours of IV antibiotics as well as keep the catheter in for 48 hours. He was then extubated brought to recovery with no complications. Complications: none Post-operative Condition: stable Disposition: PACU Plan for aftercare: Inpatient. Up with PT.
[2020-03-28] MEDS: ACETAMINOPHEN 325 MG TABLET 975 MG PO (07:50)
[2020-03-28] MEDS: CEFAZOLIN 2 GM/100 ML FROZ.PIGGY IV ×3 (07:53→20:34)
--- NOTE | 2020-03-28 08:36 | SUR.OPER ---
Prone on spine table, head in foam head support, padded chest and pelvic supports, gel pad at knees, lower legs supported by pillows; nipples, genitalia and toes free of pressure, arms secured on foam padded arm boards at <90 degrees abduction. Tape over blanket at thigh secured to table.
[2020-03-28] MEDS: THROMBIN (RECOMBINANT) 5,000 UNIT VIAL 5000 UNIT TOP (08:49)
[2020-03-28] MEDS: VANCOMYCIN 1,000 MG VIAL 1000 MG TOP (08:49)
[2020-03-28] MEDS: SODIUM CHLORIDE 0.9% 1,000 ML, GENTAMICIN 80 MG IRR (08:49)
[2020-03-28] MEDS: BUPIVACAINE 0.5% (PF) 4 ML, MORPHINE-PF 4 MG, BUTORPHANOL 1 MG, fentaNYL 100 MCG INJ (11:00)
--- NOTE | 2020-03-28 13:04 | PM.OP.1 ---
Operative Date/Time/Diagnoses Date of procedure: 03/28/20 Time of procedure: 13:04 Pre-op diagnosis: 1. False passage of Martinez catheter. 2. History of prostatectomy. Post-op diagnosis: other (3. 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 Cystoscopy 2. Cystoscopy and dilation bladder neck contracture. 3. Difficult urethral catheter placement. Same procedure as scheduled: Yes Indications: 1. Catheter dysfunction and hematuria following preoperative placement. 2. History of prostatectomy for prostate cancer. Surgeon: Gifty Simpson Click Yes if Unassisted: Yes Anesthesia Type: General Operative Notes Findings: 1. Urethra-penile and bulbar segments appear unremarkable other than some luminal clot in the proximal bulbar segment. 2. External sphincter-it appears there is of false passage at approximately 3:00 o'clock. 3. Prostate-there is an abundance of formed clot in the vicinity the external sphincter and membranous urethra. I was not able to identify any presence of prostate. 4. Bladder-there is an approximate 18 Congolese bladder neck contracture that was carefully dilated with a 22 Congolese panendoscope. Bladder lining was not able to be assessed due to intraluminal suspended blood within the urine. Closure Type: not applicable Applied: catheter (# 18 Congolese coude catheter) Estimated Blood Loss (mL): 0 Blood products transfused: none Tourniquet time (min): 0 Procedure in detail: The patient was repositioned in semilithotomy following spine surgery by Dr. Tam White. The lower abdomen, genitalia, and perineum were prepped and draped in sterile fashion. The 22 Congolese panendoscope was then passed a lower urinary tract with the findings as described above. Using the rounded beak of the panendoscope was carefully insinuated within the bladder neck contracture and advanced resulting dilation to 22 Congolese. The bladder was then left partially filled in the panendoscope was removed. A # 18 Congolese coude catheter was then advanced without incident into lower urinary tract, the balloon inflated 10 cc, and was placed to gravity drainage. Complications: none Post-operative Condition: stable Disposition: PACU Plan for aftercare: Acute care.
--- NOTE | 2020-03-28 13:12 | PM.CN ---
History of Present Illness Consult details Date Patient Seen: 03/28/20 Time Patient Seen: 13:13 Chief complaint: INPT Reason for consult: Martinez catheter dysfunction and hematuria following preoperative placement. Requesting provider: Tam Nelson Narrative: Patient is a 74-year-old white male unknown to me with apparent presumed history of localized carcinoma the prostate status post radical prostatectomy in May of 2009. I was not provided, nor could I locate any other supporting records or data. Routine preoperative Martinez catheter placement was undertaken following induction of anesthetic with this patient today. Apparently, there was initially a volume of drained return urine was then noted to be blood tinged and ceased to have output during the case. Following the procedure he was positioned repositioned in supine and again the catheter was irrigated, and again there was no return. consultation was thus requested. Meds Home Medications and Allergies Home Medications Medication Instructions Recorded Confirmed Type lisinopril 10 mg PO QDAY #0 06/17/17 03/28/20 History cholecalciferol (vitamin D3) 125 5,000 unit PO DAILY 02/20/18 03/28/20 History mcg (5,000 unit) capsule vitamin B complex 1 tab PO DAILY 02/20/18 03/28/20 History Respironics Dreamstation CPAP #1 ea 03/17/19 03/28/20 History timolol maleate 0.5 % eye drops 1 drp EYE-BOTH DAILY ml 11/09/19 03/28/20 History gabapentin 600 mg tablet 600 mg PO TID #315 tab 01/03/20 03/28/20 Rx acetaminophen [Tylenol Extra 1,000 mg PO Q6H PRN 03/22/20 03/28/20 History Strength] diphenhydramine-acetaminophen 2 tab PO BEDTIME PRN 03/22/20 03/28/20 History [Tylenol PM Extra Strength] latanoprost 1 drp EYE-BOTH DAILY 03/22/20 03/28/20 History oxymetazoline [Afrin 1 spray INTRANASAL BEDTIME 03/22/20 03/28/20 History (oxymetazoline)] Allergies Allergy/AdvReac Type Severity Reaction Status Date / Time No Known Drug Allergies Allergy Verified 03/28/20 07:47 Exam Vital Signs (past 8 hours): - 03/28/20 07:03 Temperature 97.4 F L Pulse Rate 67 Respiratory Rate 16 Blood Pressure 122/66 Pulse Oximetry 97 Oxygen Delivery Method Room Air Narrative Exam Narrative: Normal appearing adult circumcised male external genitalia. Assessment & Plan Assessment and plan (1) Urethral false passage: Status: Acute (2) History of malignant neoplasm of prostate: Status: Acute (3) Bladder neck contracture: Status: Acute Assessment & Plan narrative: Assessment: 1. Urethral false passage (membranous urethra at juncture with external sphincter). 2. Bladder neck contracture. 3. Status post prostatectomy due to prostate cancer. Plan: 1. Leave for current catheter indwelling for 2-[address] As explained to Dr. nelson, the there should be no significant sequelae from the incident. A urine specimen was obtained at the time of cystoscope placement route to rule out bacteriuria. The contracture is been sufficiently dilated. The patient may be referred back to [facility] any issues related to the current situation or for new concern in the future.
--- NOTE | 2020-03-28 13:19 | SUR.OPER ---
16 fr redman was placed prior to beginning of surgery. Redman placement did not require force for insertion, urine was observed and balloon was inflated. Blood tinged urine was noted shortly after but surgeon said to wait and monitor redman output. No output noted two hours into case and decision to flush redman was made. Redman was flushed with 50ml of saline without resistence. No return was noted. Continued with surgery and said urology would be consulted if the problem was present when surgery was complete. Surgery was complete and redman was flushed again with 50ml of saline without resistence. No return was noted. Dr. Simpson came in to perform a cystoscopy. 16fr redman was replaced with 18fr coude. New redman draining to gravity.
[2020-03-28 13:29] LABS: Appearance Urine UA CLOUDY; Bilirubin Urine UA NEGATIVE (NEGATIVE); Color Urine UA RED; Glucose Urine UA NEGATIVE (Negative); Ketones Urine UA NEGATIVE (NEGATIVE); Leukocyte Esterase Urine UA NEGATIVE (NEGATIVE); Nitrite Urine UA NEGATIVE (Negative); Occult Blood Urine UA 3+ (Negative); Protein Urine UA 1+ (Negative); Urobilinogen Urine UA 0.2 E.U./dL (0.2); pH Urine UA 6.5 (4.5-8.0)
[2020-03-28] MEDS: HYDROMORPHONE 2 MG INJ IV (13:30)
[2020-03-28] MEDS: hydrOXYzine 50 MG/ML INJ 25 MG IM (13:31)
[2020-03-28] MEDS: OXYCODONE IR 5 MG TABLET PO (13:32)
--- NOTE | 2020-03-28 13:35 | SUR.PHASEI ---
Report given to Taryn Hernandez prior to medications. Hand off to her for continued care. Pt moves readily in bed, no verbal response at this time, very drowsy.
[2020-03-28 13:39] LABS: RBC Urine >100/HPF (0-5/HPF); WBC Urine 1-5/HPF (0-5/HPF)
[2020-03-28 13:40] LABS: Bacteria Urine Few (2-10); Squamous Epithelial Cell Urine 0-1 /HPF (0-5/HPF)
--- NOTE | 2020-03-28 15:45 | PT-IP ANOTE ---
Received PT orders and reviewed chart. Pt was on CPAP for persistent de-sats. PT attempted to initiate evaluation, but pt was unable to keep his eyes open or answer any questions. Provided update to RN. Will attempt PT Friday AM.
[2020-03-28] MEDS: CELECOXIB 200 MG CAPSULE 400 MG PO (15:47)
[2020-03-28] MEDS: GABAPENTIN 600 MG TABLET PO ×2 (15:48→20:24)
[2020-03-28] MEDS: LACTATED RINGERS 1,000 ML 125 ML IV (15:48)
--- NOTE | 2020-03-28 16:34 | PC.NURSE ---
Addendum entered by Mine Medrano R.N. 03/28/20 21:20: Pt resting quietly, Pt SpO2 9.3% RA while sleeping. IVF continue as per orders. SCD on Denies discomfort @ this time. Call light w/in reach, bed alarm on for pt safety Original Note: Pt returned to room @ 1430, Drowsy, however awakens easily to verbal stimuli. Pt requestinf Cpap, SpO2 decreases to 89% RA, SpO2 95% when fully awake. Dsg to surgical back CDI IVF LR infusing into left hand @ 125cc/hr via pump w,o incidence. Martinez cath patent clear yellow urine. Call light w/in reach, bed alarm on for pt safety.
--- NOTE | 2020-03-28 20:10 | PC.NURSE ---
2005 - Pt requesting to have home c-pap off. Continuous pulse ox in place. Assist to reposition for comfort. Call light in reach.
[2020-03-28] MEDS: DOCUSATE 100 MG CAPSULE PO (20:24)
[2020-03-28] MEDS: SENNOSIDES 8.6 MG TABLET 17.2 MG PO (20:24)
[2020-03-28] MEDS: CELECOXIB 200 MG CAPSULE PO (20:24)
[2020-03-28] MEDS: OXYMETAZOLINE NASAL SPRAY 15 ML 1 SPRAYS NASAL (23:28)
[2020-03-28] MEDS: HYDROCODONE/ACET 5/325 TABLET 1 TAB PO (23:50)
[2020-03-29] VITALS (7 sets, daily range): BP systolic 111–126; BP diastolic 54–66; PULSE 61–76; RESP 16–18; TEMP 36.2–37.1; O2SAT 93–100
[2020-03-29] MEDS: LACTATED RINGERS 1,000 ML 125 ML IV (00:28)
[2020-03-29] MEDS: CEFAZOLIN 2 GM/100 ML FROZ.PIGGY IV ×2 (04:10→12:00)
[2020-03-29 05:03] LABS: Hematocrit 32.9 % (41-53); Hemoglobin 11.2 g/dL (13.5-17.5)
--- NOTE | 2020-03-29 07:49 | P.PN_ITS ---
Subjective Subjective Date Patient Seen: 03/29/20 Time Patient Seen: 07:50 Interval history: He is doing great. 0 pain at rest. Discomfort when trying to move around, but fairly mild. Legs feel good. Exam Vital Signs (past 8 hours): - 03/29/20 05:58 Temperature 97.2 F L Pulse Rate 61 Respiratory Rate 18 Blood Pressure 111/54 L Pulse Oximetry 96 Oxygen Delivery Method CPAP Oxygen Flow Rate 0 Const Orientation: alert and oriented x3 Back/Spine/Pelvis Other: Heavy drainage on dressing but not soaking through. 5/5 motor both lower extremities Objective Labs Result Diagrams: 03/29/20 04:20 Labs: Laboratory Results - last 24 hr 03/28/20 03/29/20 12:55 04:20 Hgb 11.2 L Hct 32.9 L Urine Color Red Urine Appearance Cloudy Urine pH 6.5 Ur Specific [place] 1.010 Urine Protein 1+ H Urine Glucose (UA) Negative Urine Ketones Negative Urine Occult Blood 3+ H Urine Nitrate Negative Urine Bilirubin Negative Urine Urobilinogen 0.2 Ur Leukocyte Esterase Negative Urine RBC >100/hpf H Urine WBC 1-5/hpf Ur Squamous Epith Cells 0-1 /hpf Urine Bacteria Few (2-10) H Ur Culture Indicated? Culture not indicate Assessment & Plan Post-op Postoperative Procedures: Procedures Operation Date: 03/28/20 07:45 Actual Procedures Side Surgeon p L1-2 laminectomy, L4-S1 laminectomy & instrumented fusion (TLIF) w. bone graft Tam White MD s Cystoscopy with catheter placement Gifty Simpson MD He is doing very well. We are going to mobilize today with physical therapy. I explained to him about his catheter and our plan to keep this in for 1 more day. I also reinforced this with his nurse so the whole team is on the same page.
[2020-03-29] MEDS: GABAPENTIN 600 MG TABLET PO ×3 (10:05→19:54)
[2020-03-29] MEDS: DOCUSATE 100 MG CAPSULE PO ×2 (10:05→19:54)
[2020-03-29] MEDS: CHOLECALCIFEROL (VITAMIN D3) 5,000 UNIT TABLET 5000 UNIT PO (10:06)
[2020-03-29] MEDS: lisinopriL 20 MG TABLET 10 MG PO (10:06)
[2020-03-29] MEDS: VITAMIN B COMPLEX 1 CAPSULE 1 CAP PO (10:06)
[2020-03-29] MEDS: CELECOXIB 200 MG CAPSULE PO ×2 (10:06→19:54)
[2020-03-29] MEDS: LATANOPROST 0.005% OPHTH 2.5 ML 1 DROPS EYE-BOTH (10:07)
[2020-03-29] MEDS: TIMOLOL 0.5% OPHTH 1 DROPS EYE-BOTH (10:07)
--- NOTE | 2020-03-29 12:17 | OT.IP.EVAL ---
Current Diagnoses Spondylolisthesis, lumbar region (03/28/20) Spondylosis without myelopathy or radiculopathy, lumbar region (03/28/20) Spinal stenosis, lumbar region with neurogenic claudication (03/28/20) Bladder-neck obstruction (03/28/20) Urethral false passage (03/28/20) Personal history of malignant neoplasm of prostate (03/28/20) Surgery Performed Operation Date: 03/28/20 07:45 Actual Procedures p L1-2 laminectomy, L4-S1 laminectomy & instrumented fusion (TLIF) w. bone graft - Tam White MD s Cystoscopy with catheter placement - Gifty Simpson MD Past Medical History (Last Updated 03/28/20 @ 13:16 by Gifty Simpson MD) Anxiety about health (Acute) Bladder neck contracture (Acute) Cervical spondylosis (Chronic) Elevated cholesterol (Acute) Facet arthropathy, lumbar (Acute) History of malignant neoplasm of prostate (Acute) HTN (hypertension) (Acute) Lumbar stenosis with neurogenic claudication (Chronic) Lumbosacral spondylosis with radiculopathy (Chronic) Obstructive sleep apnea (Chronic) Peripheral neuropathy (Acute) Periscapular pain (Chronic) Prostate cancer (Acute) Right shoulder pain (Acute) Seasonal allergies (Acute) Sensory peripheral neuropathy (Chronic) Spinal stenosis of lumbar region without neurogenic claudication (Chronic) Spondylolisthesis at L5-S1 level (Chronic) T12 compression fracture (Chronic) Urethral false passage (Acute) Surgical History (Last Reviewed 03/28/20 @ 13:15 by Gifty Simpson MD) History of bilateral carpal tunnel release (Acute ~1994) History of surgery (Acute) Hx of bilateral cataract extraction (Acute) Hx of prostatectomy (Acute 05/2009) Hx of removal of cyst (Acute) Hx of sinus surgery (Acute) Status post epidural steroid injection (Acute) Occupational Therapy Inpatient Evaluation/Re-Eval M1 PT/OT-IP Prior Functional Status Start: 03/28/20 15:26 Freq: NEEDED Status: Active Protocol: Document 03/29/20 11:05 DE (Rec: 03/29/20 11:43 DE [id number]) Medical Review Prior Functional Status Medical History Reviewed Yes Diet/Fluid Consistency Regular Communication WNL. No deficits noted. Able to make needs known. Mobility and Gait IND for all mobility and amb without AD or limitations at baseline. Recently, pt has only been able to amb ~300 ft at a time d/t increased pain. Activities of Daily Living and IADL's IND for all ADLs and IADLs at baseline. Social History Household Members spouse Living Arrangements House Number of Floors (Floors) One Floor Number of Stairs To Enter/Railing? Ramp entrance. 1 step with B railing to go out on the deck. Home Environment High Toilet,Walk in Shower, Built-In Shower Seat,Ramp Home Equipment Front Wheel Walker,Straight Cane,Crutches,Hand Held Shower ,Long Handled Sponge,Long Handled Shoe Horn,Grab Bars Near Toilet,Grab Bars In Shower Employment Status Retired Additional Social History Comment Pt's son will be staying at his house for 1.5 week to help . Pt also has neighbors and amish friends nearby who can help if needed. pt's has hx of stroke and pt has been assisting her at home. M1 PT/OT-IP Prior Functional Status Start: 03/29/20 11:53 Freq: NEEDED Status: Active Protocol: Document 03/29/20 11:59 RM (Rec: 03/29/20 12:17 RM [id number]) Medical Review Prior Functional Status Medical History Reviewed Yes Diet/Fluid Consistency Regular Communication WNL. No deficits noted. Able to make needs known. Mobility and Gait IND for all mobility and amb without AD or limitations at baseline. Recently, pt has only been able to amb ~300 ft at a time d/t increased pain. Activities of Daily Living and IADL's IND for all ADLs and IADLs at baseline. Social History Household Members spouse Living Arrangements House Number of Floors (Floors) One Floor Number of Stairs To Enter/Railing? Ramp entrance. 1 step with B railing to go out on the deck. Home Environment High Toilet,Walk in Shower, Built-In Shower Seat,Ramp Home Equipment Front Wheel Walker,Straight Cane,Crutches,Hand Held Shower ,Long Handled Sponge,Long Handled Shoe Horn,Grab Bars Near Toilet,Grab Bars In Shower Employment Status Retired Additional Social History Comment Pt's son will be staying at his house for 1.5 week to help . Pt also has neighbors and amish friends nearby who can help if needed. Pt's has hx of stroke and pt has been assisting her at home for IADL mngmt, she is able to complete her own self-care and she also does their laundry. M2 OT-IP Current Condition Start: 03/29/20 11:53 Freq: Status: Active Protocol: Document 03/29/20 11:59 RM (Rec: 03/29/20 12:17 RM [id number]) Occupational Therapy Current Condition Current Condition Evaluation Date 03/29/20 Treatment Diagnosis L1-2 laminectomy, L4-S1 laminectomy and fusion w/ bone graft Diagnosis Onset Date 03/28/20 Post Operative Precautions Lumbar Precautions Log Roll,No Twisting,Limit Bending,Lifting Restriction of 10 lbs,Gait Belt above Incisional Area M3 OT- IP Subjective and Pain Start: 03/29/20 11:53 Freq: Status: Active Protocol: Document 03/29/20 11:59 RM (Rec: 03/29/20 12:17 RM [id number]) OT- Subjective Occupational Therapy Visit Type Type Initial Evaluation Visit Start Time 11:10 Visit Stop Time 11:49 Total Visit Minutes 39 Occupational Therapy Visit Comments Patient Comments Patient reports that he is not having pain, just tightness in low back. Patient/Caregiver Goals Return home OT Pain Assessment Pain When Pain Assessed During Mobility Pain Present Pain Present Denied Pain Location Lower Back Description Tightness M4 OT- IP ADL's Start: 03/29/20 11:53 Freq: Status: Active Protocol: Document 03/29/20 11:59 RM (Rec: 03/29/20 12:17 RM [id number]) OT [id number] Comments OT Self-Feeding Comments not tested, no conerns with self-feeding OT ADL-Grooming Comments OT Grooming Comments not tested, no conerns with self-feeding OT ADL-Oral Care Comments Oral Care Comments not tested, no conerns with self-feeding OT ADL-Dressing General Eval Upper Body Dressing Ability Independent Lower Body Dressing Ability Moderate Assistance Areas Needing Assistance Pants/Shorts,Socks,Shoes Comments OT Dressing Comments will benefit from instruction in LB dressing tech w/ use of AE OT ADL-Toileting General Evaluation Toileting Ability Standby Assistance Devices Toileting Assistive Devices Grab Bars OT ADL-Bathing Comments OT Bathing Comments not tested, has long handled sponge, shower bench, and HH shower at home and anticipate able to complete w/ adapted s/ u. M6 OT- IP Functional Cognition Start: 03/29/20 11:53 Freq: Status: Active Protocol: Document 03/29/20 11:59 RM (Rec: 03/29/20 12:17 RM [id number]) Cognitive Factors Limiting Selfcare Function Cognitive Ability Level of Alertness Alert Attention Span Ability Capable of Focused Attention, Capable of Sustained Attention Ability to Follow Commands Able to Follow Multi-Step Commands Memory Description No Deficits Noted Safety Awareness No Deficits Noted Problem Solving Ability No deficits Noted Executive Function Ability No Deficits Noted Abstract Thinking Ability No Deficits Noted OT- Vision and Hearing OT- Hearing Assessment OT- Hearing Assessment WFL OT- Vision Assessment Visual Acuity WFL Vision Assessment Comments Reports glasses for in home mostly. M7 OT- IP Mobility and Balance Start: 03/29/20 11:53 Freq: Status: Active Protocol: Document 03/29/20 11:59 RM (Rec: 03/29/20 12:17 RM [id number]) OT- Bed Mobility Assessment Rolling Type of Rolling Log Rolling Level of Assistance Independent Sit to Supine Sit to Supine Assist Standby Assistance Scooting Scooting Up and Down in Bed Standby Assistance OT-Transfer Assessment Sit to and From Stand Sit to and from Stand Standby Assistance Transfers Transfer Ability Standby Assistance Technique Transfer Destination Bed,Chair,Toilet Devices Transfer Assistive Devices Front Wheeled Walker OT- Gait Assessment Gait Gait Assistance Required: Standby Assistance Assistive Devices Assistive Device Gait Belt,Front Wheeled Walker OT- Balance Assessment Sitting Balance and Reactions Static Sitting Balance Ability Good Dynamic Sitting Balance Ability Good Standing Balance and Reactions Static Standing Balance Ability Good Dynamic Standing Balance Ability Good M8 OT- IP Objective Assessments Start: 03/29/20 11:53 Freq: Status: Active Protocol: Document 03/29/20 11:59 RM (Rec: 03/29/20 12:17 RM [id number]) OT Gross Range of Motion Upper Extremity Range of Motion Assessment Within Functional Limits OT Strength Upper Extremity Strength Assessment Within Functional Limits M9 OT- IP Assessment and Plan Start: 03/29/20 11:53 Freq: Status: Active Protocol: Document 03/29/20 11:59 RM (Rec: 03/29/20 12:17 RM [id number]) OT Summary Assessment and Plan Potential Analytic Complexity at Evaluation Moderate Summary OT Impairments Range of Motion,Strength, Balance,Functional Mobility, Dressing,Toileting,Bathing, Toilet Transfers,Shower Transfers Assessment Summary Patient is a 74 year old male s/p L1-2 laminectomy and L4-S1 laminectomy and instrumented fusion with bone graft. He presents at [facility] with pain well controlled and aware of post-op precautions. Functional mobility and transfers SBA. Will benefit from education on use of AE and techniques for LB drsg prior to discharge. Otherwise anticipate ready to discharge home with help tomorrow. Goals Dressing Goal Independent Toileting Goal Independent Toilet Transfer Goal Independent Shower Transfer Goal Independent Frequency of Treatment Frequency Of Treatment Once a Day Treatment Plan OT Treatment Plan ADL Training,Functional Mobility Discharge Recommendations OT Discharge Recommendations Home with Assistance Home Equipment Needs sock-aid Transportation Needs at Discharge Private Vehicle
--- NOTE | 2020-03-29 12:26 | CM.DANOTE ---
DCP: Case received, EMR reviewed and met with patient. Introduced self and role. Was able to obtain information from patient regarding his baseline activity status prior to having surgery. DCP assessment completed with information currently available. Patient is a 74 year old male who admitted yesterday morning to the care of the orthopedic team. PCP: Dr. Wade. Payer: confirmed: Medicare. Patient came to the hospital via private vehicle for a surgical procedure. He had L1-2 Laminectomy. He has had history of chronic back pain. Met with patient in his room. He was sitting up in his chair, alert and oriented. He resides in [place] with his spouse Maritza. He mentioned that she is disabled, since she has had a stroke, and is mostly in her wheel-chair. He stated that his son was flying up from [place], and would be here later today, and plan on assisting him when he goes home. Sheldon. is working with patient, went ahead and placed order for FWW for patient to use at home. P: DCP to continue to follow. Patient should be able to go home when he is medically stable, and cleared by P.T. Kelin Lerner RN/Fixed Income Trading Vice President
--- NOTE | 2020-03-29 13:09 | PT.IIE ---
Current Diagnoses Spondylolisthesis, lumbar region (03/28/20) Spondylosis without myelopathy or radiculopathy, lumbar region (03/28/20) Spinal stenosis, lumbar region with neurogenic claudication (03/28/20) Bladder-neck obstruction (03/28/20) Urethral false passage (03/28/20) Personal history of malignant neoplasm of prostate (03/28/20) Surgery Performed Operation Date: 03/28/20 07:45 Actual Procedures p L1-2 laminectomy, L4-S1 laminectomy & instrumented fusion (TLIF) w. bone graft - Tam White MD s Cystoscopy with catheter placement - Gifty Simpson MD Surgical History (Last Reviewed 03/28/20 @ 13:15 by Gifty Simpson MD) History of bilateral carpal tunnel release (Acute ~1994) History of surgery (Acute) Hx of bilateral cataract extraction (Acute) Hx of prostatectomy (Acute 05/2009) Hx of removal of cyst (Acute) Hx of sinus surgery (Acute) Status post epidural steroid injection (Acute) Medical History (Last Updated 03/28/20 @ 13:16 by Gifty Simpson MD) Anxiety about health (Acute) Bladder neck contracture (Acute) Cervical spondylosis (Chronic) Elevated cholesterol (Acute) Facet arthropathy, lumbar (Acute) History of malignant neoplasm of prostate (Acute) HTN (hypertension) (Acute) Lumbar stenosis with neurogenic claudication (Chronic) Lumbosacral spondylosis with radiculopathy (Chronic) Obstructive sleep apnea (Chronic) Peripheral neuropathy (Acute) Periscapular pain (Chronic) Prostate cancer (Acute) Right shoulder pain (Acute) Seasonal allergies (Acute) Sensory peripheral neuropathy (Chronic) Spinal stenosis of lumbar region without neurogenic claudication (Chronic) Spondylolisthesis at L5-S1 level (Chronic) T12 compression fracture (Chronic) Urethral false passage (Acute) Physical Therapy Inpatient Evaluation/Re-Eval M1 PT/OT-IP Prior Functional Status Start: 03/28/20 15:26 Freq: NEEDED Status: Active Protocol: Document 03/29/20 11:05 DE (Rec: 03/29/20 11:43 DE [id number]) Medical Review Prior Functional Status Medical History Reviewed Yes Diet/Fluid Consistency Regular Communication WNL. No deficits noted. Able to make needs known. Mobility and Gait IND for all mobility and amb without AD or limitations at baseline. Recently, pt has only been able to amb ~300 ft at a time d/t increased pain. Activities of Daily Living and IADL's IND for all ADLs and IADLs at baseline. Social History Household Members spouse Living Arrangements House Number of Floors (Floors) One Floor Number of Stairs To Enter/Railing? Ramp entrance. 1 step with B railing to go out on the deck. Home Environment High Toilet,Walk in Shower, Built-In Shower Seat,Ramp Home Equipment Front Wheel Walker,Straight Cane,Crutches,Hand Held Shower ,Long Handled Sponge,Long Handled Shoe Horn,Grab Bars Near Toilet,Grab Bars In Shower Employment Status Retired Additional Social History Comment Pt's son will be staying at his house for 1.5 week to help . Pt also has neighbors and faith friends nearby who can help if needed. pt's has hx of stroke and pt has been assisting her at home. M1 PT/OT-IP Prior Functional Status Start: 03/29/20 11:53 Freq: NEEDED Status: Active Protocol: Document 03/29/20 11:59 RM (Rec: 03/29/20 12:17 RM [id number]) Medical Review Prior Functional Status Medical History Reviewed Yes Diet/Fluid Consistency Regular Communication WNL. No deficits noted. Able to make needs known. Mobility and Gait IND for all mobility and amb without AD or limitations at baseline. Recently, pt has only been able to amb ~300 ft at a time d/t increased pain. Activities of Daily Living and IADL's IND for all ADLs and IADLs at baseline. Social History Household Members spouse Living Arrangements House Number of Floors (Floors) One Floor Number of Stairs To Enter/Railing? Ramp entrance. 1 step with B railing to go out on the deck. Home Environment High Toilet,Walk in Shower, Built-In Shower Seat,Ramp Home Equipment Front Wheel Walker,Straight Cane,Crutches,Hand Held Shower ,Long Handled Sponge,Long Handled Shoe Horn,Grab Bars Near Toilet,Grab Bars In Shower Employment Status Retired Additional Social History Comment Pt's son will be staying at his house for 1.5 week to help . Pt also has neighbors and faith friends nearby who can help if needed. Pt's has hx of stroke and pt has been assisting her at home for IADL mngmt, she is able to complete her own self-care and she also does their laundry. M2 PT-IP Current Condition Start: 03/28/20 15:26 Freq: NEEDED Status: Active Protocol: Document 03/29/20 11:05 DE (Rec: 03/29/20 11:43 DE [id number]) Physical Therapy Current Condition Current Condition Evaluation Date 03/29/20 Treatment Diagnosis L4-S1 TLIF; Difficulty with walking Onset Date 03/28/20 Precautions Lumbar Precautions Log Roll,No Twisting,Limit Bending,Lifting Restriction of 10 lbs,Gait Belt above Incisional Area M3 PT-IP Subjective Start: 03/28/20 15:26 Freq: NEEDED Status: Active Protocol: Document 03/29/20 11:05 DE (Rec: 03/29/20 11:43 DE [id number]) Subjective Physical Therapy Visit Type Type Initial Evaluation Visit Start Time 08:50 Visit Stop Time 09:30 Total Visit Minutes 40 Notes SPT let the session under direct supervision of PT Urszula throughout the entire session. Number of COMMERCIAL SHEET METAL FOREMAN Visits 0 Physical Therapy Visit Comments Patient Comments Pt is agreeable to do PT. Patient Goals To return home. M4 PT-IP Mobility and Gait Start: 03/28/20 15:26 Freq: NEEDED Status: Active Protocol: Document 03/29/20 11:05 DE (Rec: 03/29/20 11:43 DE [id number]) PT-Bed Mobility Assessment Rolling Type of Rolling Log Rolling,Roll to Left Level of Assist Contact Guard Assistance Scooting Scooting to Edge of Bed Contact Guard Assistance PT-Transfer Assessment Sit to and From Stand Sit to and from Stand Contact Guard Assistance Equipment Transfer Assistive Device Gait Belt,Front Wheeled Walker Orthotic/Prosthetic Devices or Brace: No Transfers Transfer Destination Chair Transfer Technique Stand Step Pivot Transfer Ability Level of Assist Contact Guard Assistance Comments Mobility Comments Pt was lying in bed with elvated HOB as PT and SPT arrived. BP was 134/62. Pt completed logroll and sat on the L side of the bed with CGA and use of BUE. Pt moved very slowly but was able to complete the logroll. Noticed drainage was coming out of dressing on the incision and called RN to change the dressing. Pt sat there for ~5 min while dressing was being changed. Pt then performed sit to stand with CGA and FWW. Pt amb ~15 ft toal around foot of bed, to the window, to the chair, and sat down on the chair with CGA and FWW. Pt demonstrated step-through pattern with decreased stride length, decreased foot clearance, and decreased gait speed. Call light placed within reach. Gait Assessment Gait Gait Assistance Required: Contact Guard Assist Distance (Feet) 15 Able to Maintain Weight Bearing Status Yes During Gait Assistive Devices Assistive Device Gait Belt,Front Wheeled Walker Orthotic/Prosthetic Devices or Brace: No Gait Deviations General Gait Pattern Antalgic,Decreased Stride Length,Decreased Feet Clearance Factors Limiting Gait Function Factors Limiting Gait Function Decreased Activity Tolerance, Decreased Strength,Limited Range of Motion,Pain,Poor Balance Comments Gait Comments See mobility comments. Stair Climbing Assessment Comments Stair Climbing Comments Not assessed. PT-Balance Assessment Sitting Balance and Reactions Static Sitting Balance Ability Normal Dynamic Sitting Balance Ability Normal Standing Balance and Reactions Static Standing Balance Ability Good Dynamic Standing Balance Ability Good M5 PT-IP Objective Assessments Start: 03/28/20 15:26 Freq: NEEDED Status: Active Protocol: Document 03/29/20 11:05 DE (Rec: 03/29/20 11:43 DE [id number]) Orientation Orientation/Cognition Level of Alertness Alert Orientation Name,Age,Birthday,Month,Date, Year,Day of Week,Place, Situation Safety Awareness Understands Safety Issues Memory Description No Deficits Noted Gross Range of Motion Lower Extremity ROM Assessment Within Functional Limits Strength Lower Extremity Strength Assessment Within Functional Limits Coordination Assessment Gross Coordination Gross Coordination WNL Sensation Assessment Sensation Gross Sensation WNL Light Touch Intact Muscle Tone Muscle Tone WNL Yes M6 PT-IP Treatment Start: 03/28/20 15:26 Freq: NEEDED Status: Active Protocol: Document 03/29/20 11:05 DE (Rec: 03/29/20 11:43 DE [id number]) Physical Therapy Treatment Education Education Provided Precautions,Post-Op Packet, Safety M7 PT-IP Assessment and Plan Start: 03/28/20 15:26 Freq: NEEDED Status: Active Protocol: Document 03/29/20 11:05 DE (Rec: 03/29/20 11:43 OR [id number]) PT Summary Assessment and Plan Potential Rehabilitation Potential Good Status of Condition at Evaluation Stable Summary Impairments Pain,ROM,Strength,Balance,Bed Mobility,Transfers,Gait, Activity Tolerance Assessment Summary This is a low complexity evaluation for 74 yo male, [place], s/p L4-S1 TLIF post- op day 1. At baseline, pt was IND for all mobility, amb, and ADLs without use of AD or limitations. On evaluation, pt required CGA and FWW for all bed mobility, transfers, and amb. Pt will need to improve amb distance before d/c. PT anticipates pt will d/c home with assistance once medically cleared. Goals Bed Mobility Goal Independent Transfer Goal Independent Gait Goal Independent Gait Distance 100 Days to Meet Goals 5 Frequency of Treatment Frequency Of Treatment Twice a Day Treatment Plan Physical Therapy Treatment Plan Bed Mobility Training,Transfer Training,Gait Training, Therapeutic Exercise,Post Op Education,Discharge Planning Recommendations To Nursing Amount of Assist Needed 1 Person Assist Discharge Recommendations PT Discharge Recommendations Home with Assistance Equipment Needed for Home Before FWW Discharge Transportation Needs at Discharge Private Vehicle This IE note is written by SPT Daniel Reyes. It has been reviewed and approved by PT Tao Cardoza
--- NOTE | 2020-03-29 16:04 | PT.IPTN ---
Current Diagnoses Spondylolisthesis, lumbar region (03/28/20) Spondylosis without myelopathy or radiculopathy, lumbar region (03/28/20) Spinal stenosis, lumbar region with neurogenic claudication (03/28/20) Bladder-neck obstruction (03/28/20) Urethral false passage (03/28/20) Personal history of malignant neoplasm of prostate (03/28/20) Surgery Performed Operation Date: 03/28/20 07:45 Actual Procedures p L1-2 laminectomy, L4-S1 laminectomy & instrumented fusion (TLIF) w. bone graft - Tam White MD s Cystoscopy with catheter placement - Gifty Simpson MD Physical Therapy Treatment Note M2 PT-IP Current Condition Start: 03/28/20 15:26 Freq: NEEDED Status: Active Protocol: Document 03/29/20 11:05 DE (Rec: 03/29/20 11:43 DE [id number]) Physical Therapy Current Condition Current Condition Evaluation Date 03/29/20 Treatment Diagnosis L4-S1 TLIF; Difficulty with walking Onset Date 03/28/20 Precautions Lumbar Precautions Log Roll,No Twisting,Limit Bending,Lifting Restriction of 10 lbs,Gait Belt above Incisional Area M3 PT-IP Subjective Start: 03/28/20 15:26 Freq: NEEDED Status: Active Protocol: Document 03/29/20 15:40 KS (Rec: 03/29/20 17:04 KS [email or web address]) Subjective Physical Therapy Visit Type Type Treatment Note Visit Start Time 15:40 Visit Stop Time 16:04 Total Visit Minutes 24 Notes Pts present during treatment. Number of REGULATORY COMPLIANCE OFFICER Visits 1 Physical Therapy Visit Comments Patient Comments Pt is agreeable to do PT. Patient Goals To return home. Therapy Pain Assessment Pain When Pain Assessed During Mobility Pain Present Pain Present Denied Pain M4 PT-IP Mobility and Gait Start: 03/28/20 15:26 Freq: NEEDED Status: Active Protocol: Document 03/29/20 15:40 KS (Rec: 03/29/20 17:04 KS [email or web address]) PT-Bed Mobility Assessment Rolling Type of Rolling Log Rolling,Roll to Left Level of Assist Contact Guard Assistance Supine to Sit Supine to Sit Contact Guard Assistance Sit to Supine Sit to Supine Minimal Assistance Scooting Scooting to Edge of Bed Contact Guard Assistance PT-Transfer Assessment Sit to and From Stand Sit to and from Stand Contact Guard Assistance Equipment Transfer Assistive Device Gait Belt,Front Wheeled Walker Orthotic/Prosthetic Devices or Brace: No Transfers Transfer Destination Bed Transfer Technique pt ambulated w/ FWW Transfer Ability Level of Assist Contact Guard Assistance Comments Mobility Comments Pt in bed upon arrival from therapy and able to recall 3/3 precautions. CGA for logroll to L and sidelying<>sit. Pt scooted EOB and sit<>stand CGA w/ FWW and cues for hand placement. Pt performed 30 seconds weight shifting prior to ambulation. He then ambulated ~40 ft around room w / FWW. Pt ambulated slowly w/ flexed trunk, but overall demonstrated good use of FWW w /o heavy BUE support. Pt returned to bed, Min A for LE guidance into bed during sit<> sidelying, CGA and cues for spinal alignment for logroll back into bed. Pt left in bed w/ all needs in reach. Gait Assessment Gait Gait Assistance Required: Contact Guard Assist,1 Person Assist Distance (Feet) 40 Able to Maintain Weight Bearing Status Yes During Gait Assistive Devices Assistive Device Gait Belt,Front Wheeled Walker Orthotic/Prosthetic Devices or Brace: No Gait Deviations General Gait Pattern Antalgic,Decreased Stride Length,Decreased Feet Clearance Factors Limiting Gait Function Factors Limiting Gait Function Decreased Activity Tolerance, Decreased Strength,Limited Range of Motion,Pain,Poor Balance Comments Gait Comments See mobility comments. Stair Climbing Assessment Comments Stair Climbing Comments Not assessed. PT-Balance Assessment Sitting Balance and Reactions Static Sitting Balance Ability Normal Dynamic Sitting Balance Ability Normal Standing Balance and Reactions Static Standing Balance Ability Good Dynamic Standing Balance Ability Good M5 PT-IP Objective Assessments Start: 03/28/20 15:26 Freq: NEEDED Status: Active Protocol: Document 03/29/20 11:05 DE (Rec: 03/29/20 11:43 DE [id number]) Orientation Orientation/Cognition Level of Alertness Alert Orientation Name,Age,Birthday,Month,Date, Year,Day of Week,Place, Situation Safety Awareness Understands Safety Issues Memory Description No Deficits Noted Gross Range of Motion Lower Extremity ROM Assessment Within Functional Limits Strength Lower Extremity Strength Assessment Within Functional Limits Coordination Assessment Gross Coordination Gross Coordination WNL Sensation Assessment Sensation Gross Sensation WNL Light Touch Intact Muscle Tone Muscle Tone WNL Yes M6 PT-IP Treatment Start: 03/28/20 15:26 Freq: NEEDED Status: Active Protocol: Document 03/29/20 15:40 KS (Rec: 03/29/20 17:04 KS [email or web address]) Physical Therapy Treatment Education Education Provided Precautions,Post-Op Packet, Safety M7 PT-IP Assessment and Plan Start: 03/28/20 15:26 Freq: NEEDED Status: Active Protocol: Document 03/29/20 15:40 KS (Rec: 03/29/20 17:04 KS [email or web address]) PT Summary Assessment and Plan Potential Rehabilitation Potential Good Status of Condition at Evaluation Stable Summary Impairments Pain,ROM,Strength,Balance,Bed Mobility,Transfers,Gait, Activity Tolerance Progress Towards Goals Progressing Toward Goals Assessment Summary Pt showed increased tolerance for ambulation this PM and tolerated ~40 ft w/ FWW CGA. Pt CGA for logroll and sidelying<>sit, Min A for sit< >sidelying for LE guidance. Pt required min cues for hand placement during transfers. Pt will need to improve gait distance and complete caregiver training prior to d/ c. Goals Bed Mobility Goal Independent Transfer Goal Independent Gait Goal Independent Gait Distance 100 Days to Meet Goals 5 Frequency of Treatment Frequency Of Treatment Twice a Day Treatment Plan Physical Therapy Treatment Plan Bed Mobility Training,Transfer Training,Gait Training, Therapeutic Exercise,Post Op Education,Discharge Planning Recommendations To Nursing Amount of Assist Needed 1 Person Assist Discharge Recommendations PT Discharge Recommendations Home with Assistance Equipment Needed for Home Before FWW Discharge Transportation Needs at Discharge Private Vehicle
[2020-03-29] MEDS: SENNOSIDES 8.6 MG TABLET 17.2 MG PO (19:54)
[2020-03-29] MEDS: OXYMETAZOLINE NASAL SPRAY 15 ML 1 SPRAYS NASAL (19:55)
[2020-03-29] MEDS: ACETAMINOPHEN 325 MG TABLET 975 MG PO (20:33)
[2020-03-29] MEDS: SODIUM CHLORIDE 0.9% FLUSH 10 ML IV (22:20)
[2020-03-30] VITALS: BP 115/49; PULSE 64; RESP 18; TEMP 36.4; O2SAT 94
[2020-03-30] MEDS: HYDROCODONE/ACET 5/325 TABLET 2 TAB PO ×2 (04:45→09:17)
[2020-03-30 04:47] VITALS: BP 126/53; PULSE 62; RESP 16; TEMP 36.2; O2SAT 97
--- NOTE | 2020-03-30 08:44 | PM.PNPO.1 ---
Subjective Subjective Date Patient Seen: 03/30/20 Time Patient Seen: 08:44 Interval history: He had a rough evening but finally got his pain under control about 4:00 a.m. and is doing much better. He did well with PT yesterday. Exam Vital Signs (past 8 hours): - 03/30/20 04:47 Temperature 97.2 F L Pulse Rate 62 Respiratory Rate 16 Blood Pressure 126/53 L Pulse Oximetry 97 Oxygen Delivery Method Room Air Oxygen Flow Rate 0 Const Orientation: alert and oriented x3 Back/Spine/Pelvis Other: CDI. 5/5 motor both lower extremities. Objective Labs Result Diagrams: 03/29/20 04:20 Assessment & Plan Post-op Postoperative Procedures: Procedures Operation Date: 03/28/20 07:45 Actual Procedures Side Surgeon p L1-2 laminectomy, L4-S1 laminectomy & instrumented fusion (TLIF) w. bone graft Tam White MD s Cystoscopy with catheter placement Gifty Simpson MD he is doing well. Plan to remove the catheter and make sure that he can urinate. If he is doing well with therapy later today he could possibly go home this afternoon.
--- NOTE | 2020-03-30 08:45 | PM.DS.1 ---
History of Present Illness History of Present Illness Date Patient Seen: 03/30/20 Time Patient Seen: 08:45 Chief complaint: INPT Narrative: 74-year-old male with back and leg pain. He has had chronic back pain for years but been having progressively worsening leg symptoms over the past several months. His back pain has been managed with injections but his leg was getting progressively weaker and more painful. Discharge Providers Provider Date of admission: 03/28/20 06:13 Discharge Date: 03/30/20 Primary care physician: Phoebe Wade MD Consults: 03/28/20 07:14 Consult to Respiratory Therapy Evaluate & Treat Comment: Physician Instructions: Evaluate and treat 03/28/20 14:16 Consult to Occupational Therapy Evaluate & Treat Comment: Physician Instructions: Evaluate and treat Consult to Physical Therapy Evaluate & Treat Comment: Physician Instructions: Evaluate and Treat 03/29/20 10:31 Consult to Physical Therapy Evaluate & Treat Comment: Physician Instructions: FWW for Home Use Discharge provider: Tam White MD Summary Hospital Course Discharge Diagnosis: Lumbar stenosis with radiculopathy Lumbar spondylolisthesis Hospital Course: He is brought to the operating room on 03/28/2020 where he underwent a L1-2 and L4 through S1 laminectomy as well as an instrumented fusion TLIF at L4 through S1. At the time of surgery he had a little initial urine output with the catheter the but then it turned bloody and stopped putting any output. The into the surgery Dr. Simpson from Urology did a cystoscopy and found that he had a false passage from his previous prostatectomy and a new catheter was placed. Because of this his catheter was kept in for 48 hours as well as 48 hours of IV antibiotics. He was able to urinate well after the catheter was removed. He mobilized well with physical therapy. His pain was under good control by discharge. Status at Discharge Cognitive/behavioral status at discharge: oriented Functional status at discharge: uses cane/walker Overall status at discharge: patient is progressing back to baseline Exam Vital Signs (past 8 hours): - 03/30/20 04:47 Temperature 97.2 F L Pulse Rate 62 Respiratory Rate 16 Blood Pressure 126/53 L Pulse Oximetry 97 Oxygen Delivery Method Room Air Oxygen Flow Rate 0 Const Orientation: alert and oriented x3 Back/Spine/Pelvis Other: CDI. 5/5 motor both lower extremities. Objective Labs Result Diagrams: 03/29/20 04:20 Discharge Assessment & Plan Assessment and Plan Assessment: Lumbar stenosis with radiculopathy now status post laminectomy and fusion History of prostatectomy with a difficult urinary catheterization and false passage at the neck of the bladder, now status post urethral scope. Plan of Treatment: Discharge home Discharge Plan Discharge Plan Patient Disposition: Home Provider Discharge Comment: Follow-up 1.5 weeks Discharge orders & Medications Prescriptions: New celecoxib [Celebrex] 200 mg Capsule 200 mg PO BID PRN (Reason: pain) Qty: 60 RF: 0 docusate sodium [DOK] 100 mg Capsule 100 mg PO BID PRN (Reason: constipation) Qty: 40 RF: 0 hydrocodone-acetaminophen 5-325 mg Tablet 1 tab PO Q4HR PRN (Reason: Pain, Moderate (4-6)) Qty: 40 RF: 0 hydroxyzine pamoate 25 mg Capsule 25 mg PO Q4HR PRN (Reason: spasms) Qty: 20 RF: 0 Continued lisinopril 20 MG tablet 10 mg PO QDAY Qty: 0 RF: 0 gabapentin 600 mg tablet 600 mg PO TID Qty: 315 RF: 2 acetaminophen [Tylenol Extra Strength] 500 mg Tablet 1,000 mg PO Q6H PRN (Reason: Pain) RF: 0 diphenhydramine-acetaminophen [Tylenol PM Extra Strength] 25-500 mg Tablet 2 tab PO BEDTIME PRN (Reason: Sleep) RF: 0 latanoprost 0.005 % Drops 1 drp EYE-BOTH DAILY RF: 0 Afrin (oxymetazoline) 0.05 % Mist 1 spray INTRANASAL BEDTIME RF: 0 cholecalciferol (vitamin D3) 5,000 unit capsule 5,000 unit PO DAILY RF: 0 vitamin B complex [B Complex-Vitamin B12] tablet 1 tab PO DAILY RF: 0 timolol maleate 0.5 % drops 1 drp EYE-BOTH DAILY RF: 0 (DME) Respironics Dreamstation CPAP inhaler Qty: 1 RF: 0 Follow up/Referrals: Phoebe Wade MD [Primary Care Provider] - Tam White MD [Physician] - Discharge Health Status Multidrug resistant organism: No MDRO Diet/Activity/Treatments Diet: Diet as Tolerated Activity: Limited bending, twisting, 10 lb maximum lifting Skin/Wound/Dressing Care Dressing: May shower over the dressing for the 1st 5 days after surgery. On Friday you may remove the dressing and shower over the incision. Please replace with a clean dressing when done. Visit Report/Discharge Packet Instructions: DI for Cystoscopy, DI for Prescription Opioid Use, Hydroxyzine, Celecoxib, Hydrocodone, DI for Transforaminal Lumbar Interbody Fusion Stand Alone Forms: Surgery Discharge Discharge Data Primary Care Provider: Phoebe Wade
[2020-03-30 09:13] VITALS: BP 126/63
[2020-03-30] MEDS: CELECOXIB 200 MG CAPSULE PO (09:13)
[2020-03-30] MEDS: VITAMIN B COMPLEX 1 CAPSULE 1 CAP PO (09:13)
[2020-03-30] MEDS: GABAPENTIN 600 MG TABLET PO (09:13)
[2020-03-30] MEDS: DOCUSATE 100 MG CAPSULE PO (09:13)
[2020-03-30] MEDS: lisinopriL 20 MG TABLET 10 MG PO (09:13)
[2020-03-30] MEDS: SODIUM CHLORIDE 0.9% FLUSH 10 ML IV (09:20)
[2020-03-30] MEDS: LATANOPROST 0.005% OPHTH 2.5 ML 1 DROPS EYE-BOTH (09:20)
[2020-03-30] MEDS: TIMOLOL 0.5% OPHTH 1 DROPS EYE-BOTH (09:21)
[2020-03-30] MEDS: CHOLECALCIFEROL (VITAMIN D3) 5,000 UNIT TABLET 5000 UNIT PO (09:21)
[2020-03-30 10:00] VITALS: BP 125/62; PULSE 63; RESP 16; TEMP 36.5; O2SAT 96
--- NOTE | 2020-03-30 11:00 | OT.IP.TRT ---
Current Diagnoses Spondylolisthesis, lumbar region (03/28/20) Spondylosis without myelopathy or radiculopathy, lumbar region (03/28/20) Spinal stenosis, lumbar region with neurogenic claudication (03/28/20) Bladder-neck obstruction (03/28/20) Urethral false passage (03/28/20) Personal history of malignant neoplasm of prostate (03/28/20) Surgery Performed Operation Date: 03/28/20 07:45 Actual Procedures p L1-2 laminectomy, L4-S1 laminectomy & instrumented fusion (TLIF) w. bone graft - Tam White MD s Cystoscopy with catheter placement - Gifty Simpson MD Occupational Therapy Treatment Note M2 OT-IP Current Condition Start: 03/29/20 11:53 Freq: Status: Active Protocol: Document 03/29/20 11:59 RM (Rec: 03/29/20 12:17 RM [id number]) Occupational Therapy Current Condition Current Condition Evaluation Date 03/29/20 Treatment Diagnosis L1-2 laminectomy, L4-S1 laminectomy and fusion w/ bone graft Diagnosis Onset Date 03/28/20 Post Operative Precautions Lumbar Precautions Log Roll,No Twisting,Limit Bending,Lifting Restriction of 10 lbs,Gait Belt above Incisional Area M3 OT- IP Subjective and Pain Start: 03/29/20 11:53 Freq: Status: Active Protocol: Document 03/30/20 10:12 [facility]3] (Rec: 03/30/20 11:27 [facility]3] [id number]) OT- Subjective Occupational Therapy Visit Type Type Treatment Note Visit Start Time 09:38 Visit Stop Time 11:00 Total Visit Minutes 53 Notes Pt seen from [id number] and then 1012 -1059 Occupational Therapy Visit Comments Patient Comments Pt agreed to get up to use the bathroom. Patient/Caregiver Goals TO go home. OT Pain Assessment Pain When Pain Assessed At Rest Pain Present Pain Present Pain Reported Location Lower Back Intensity 3 Scale Used Numeric (0 - 10) M4 OT- IP ADL's Start: 03/29/20 11:53 Freq: Status: Active Protocol: Document 03/30/20 10:12 [facility]3] (Rec: 03/30/20 11:27 [facility]3] [email or web address]) OT [id number] Comments OT Self-Feeding Comments Not at meal time. OT ADL-Grooming General Evaluation Grooming Ability Standby Assistance Areas Needing Assistance Retrieving/Set-up of Grooming Items OT ADL-Oral Care General Eval Oral Care Ability Independent Comments Oral Care Comments Initial vc to hinge at his hips when spitting. OT ADL-Dressing General Eval Lower Body Dressing Ability Minimal Assistance Areas Needing Assistance Underpants/Brief,Socks,Shoes Comments OT Dressing Comments Pt needing assist to tie his shoes otherwise able to use sock aid and director of corporate real estate to assist for the rest with good follow through of bad precautions. OT ADL-Toileting General Evaluation Toileting Ability Standby Assistance,Moderate Assistance Devices Toileting Assistive Devices Grab Bars Comments OT Toileting Comments SBA after urination while seated and will need assist for needs after bowel movement . Went over information of toilet paper aid , pt states prior already looking into getting bidet. OT ADL-Bathing Bathing Type Bathing Type Sponge Bath General Evaluation Bathing Ability Moderate Assistance Areas Needing Assistance Wash/Dry Back,Wash/Dry Perineal Area Comments OT Bathing Comments Pt able sponge off at this time while seated at the edge of the bed. M6 OT- IP Functional Cognition Start: 03/29/20 11:53 Freq: Status: Active Protocol: Document 03/30/20 10:12 [facility]3] (Rec: 03/30/20 11:27 [facility]3] [id number]) Cognitive Factors Limiting Selfcare Function Cognitive Comments Cognitive Assessment Comments Intact M7 OT- IP Mobility and Balance Start: 03/29/20 11:53 Freq: Status: Active Protocol: Document 03/30/20 10:12 [facility]3] (Rec: 03/30/20 11:27 [facility]3] [email or web address]) OT- Bed Mobility Assessment Rolling Type of Rolling Roll to Left Level of Assistance Standby Assistance Supine to Sit Supine to Sit Assist Standby Assistance OT-Transfer Assessment Sit to and From Stand Sit to and from Stand Minimal Assistance,Moderate Assistance Transfers Transfer Ability Standby Assistance Technique Transfer Destination Bed,Chair,Toilet Devices Transfer Assistive Devices Front Wheeled Walker Comments Mobility Comments Today pt needing more assist to stand especially if not having anything to grab to. OT- Balance Assessment Sitting Balance and Reactions Static Sitting Balance Ability Normal Dynamic Sitting Balance Ability Good Standing Balance and Reactions Static Standing Balance Ability Good M8 OT- IP Objective Assessments Start: 03/29/20 11:53 Freq: Status: Active Protocol: Document 03/29/20 11:59 RM (Rec: 03/29/20 12:17 RM [id number]) OT Gross Range of Motion Upper Extremity Range of Motion Assessment Within Functional Limits OT Strength Upper Extremity Strength Assessment Within Functional Limits M9 OT- IP Assessment and Plan Start: 03/29/20 11:53 Freq: Status: Active Protocol: Document 03/30/20 10:12 [facility]3] (Rec: 03/30/20 11:27 [facility]3] [id number]) OT Summary Assessment and Plan Potential Rehabilitation Potential Good Summary OT Impairments Range of Motion,Strength, Balance,Functional Mobility, Dressing,Toileting,Bathing, Toilet Transfers,Shower Transfers Progress Towards Goals Progressing Toward Goals Assessment Summary Pt able to participate in toileting, grooming and dressing needs and has good understanding for all LB dressing equipment and needs. Pt's son to be coming in later to do caregiver training with [employer]. Pt to go home when medically stable. Goals Dressing Goal Minimal Assistance Toileting Goal Independent Bathing Goal Independent Toilet Transfer Goal Independent Shower Transfer Goal Independent Patient/Caregiver Education Goal Demonstrate Post-Op Precautions,Caregiver Independent Assisting Patient Days to Meet Goals 2 Frequency of Treatment Frequency Of Treatment Once a Day Treatment Plan OT Treatment Plan ADL Training,Functional Mobility,Patient/Family Education,Discharge Planning Other Treatment Recommendations and Next Shower if still here Treatment Focus Discharge Recommendations OT Discharge Recommendations Home with Assistance Home Equipment Needs toilet paper aid versus bidet Transportation Needs at Discharge Private Vehicle
--- NOTE | 2020-03-30 12:23 | PC.NURSE ---
Pt able to void without difficulty post redman removal. There was a small amount of blood present which showed as residue in the otherwise clear yellow urine.
--- NOTE | 2020-03-30 12:29 | PT.IPTN ---
Current Diagnoses Spondylolisthesis, lumbar region (03/28/20) Spondylosis without myelopathy or radiculopathy, lumbar region (03/28/20) Spinal stenosis, lumbar region with neurogenic claudication (03/28/20) Bladder-neck obstruction (03/28/20) Urethral false passage (03/28/20) Personal history of malignant neoplasm of prostate (03/28/20) Surgery Performed Operation Date: 03/28/20 07:45 Actual Procedures p L1-2 laminectomy, L4-S1 laminectomy & instrumented fusion (TLIF) w. bone graft - Tam White MD s Cystoscopy with catheter placement - Gifty Simpson MD Physical Therapy Treatment Note M2 PT-IP Current Condition Start: 03/28/20 15:26 Freq: NEEDED Status: Discharge Protocol: Document 03/29/20 11:05 DE (Rec: 03/29/20 11:43 DE [id number]) Physical Therapy Current Condition Current Condition Evaluation Date 03/29/20 Treatment Diagnosis L4-S1 TLIF; Difficulty with walking Onset Date 03/28/20 Precautions Lumbar Precautions Log Roll,No Twisting,Limit Bending,Lifting Restriction of 10 lbs,Gait Belt above Incisional Area M3 PT-IP Subjective Start: 03/28/20 15:26 Freq: NEEDED Status: Discharge Protocol: Document 03/30/20 11:51 KS (Rec: 03/30/20 16:03 KS [id number]) Subjective Physical Therapy Visit Type Type Treatment Note Visit Start Time 11:51 Visit Stop Time 12:29 Total Visit Minutes 38 Notes Pts son present for caregiver training. Number of HOT WATER HEATER INSTALLER Visits 2 Physical Therapy Visit Comments Patient Comments Pt is agreeable to do PT. Patient Goals To return home. M4 PT-IP Mobility and Gait Start: 03/28/20 15:26 Freq: NEEDED Status: Discharge Protocol: Document 03/30/20 11:51 KS (Rec: 03/30/20 16:03 KS [id number]) PT-Bed Mobility Assessment Rolling Type of Rolling Log Rolling,Roll to Left Level of Assist Contact Guard Assistance Supine to Sit Supine to Sit Contact Guard Assistance Sit to Supine Sit to Supine Minimal Assistance Scooting Scooting to Edge of Bed Contact Guard Assistance PT-Transfer Assessment Sit to and From Stand Sit to and from Stand Contact Guard Assistance Equipment Transfer Assistive Device Gait Belt,Front Wheeled Walker Orthotic/Prosthetic Devices or Brace: No Transfers Transfer Destination Bed,Chair Transfer Technique pt ambulated w/ FWW Transfer Ability Level of Assist Contact Guard Assistance Comments Mobility Comments Pt in chair upon arrival from therapy. Instructed pt and pt performed 1x10 bilateral ankle pumps, quad sets, glute sets, and heel slides to improve LE bloodflow and strengthening. Pts son then arrived for caregiver training. Instructed pts son in gait application, which he was able to lilli successfully. Pt CGA for scooting to EOC and CGA w/ cues for sit<>stand w/ FWW. Pt then ambulated ~120 ft w/ FWW and CGA provided by pts son. Pt demonstrated good use of FWW and good safet awareness and pts son able to provide CGA and cues. Pt returned to room and performed logroll into and out of bed w/ CGA and cues. Pts son assisted successfully. CGA for sidelying<>sit. Pt then transferred to chair w/ FWW and CGA by pts son. Pt and son state they feel safe to return home today. Gait Assessment Gait Gait Assistance Required: Contact Guard Assist,1 Person Assist Distance (Feet) 120 Able to Maintain Weight Bearing Status Yes During Gait Assistive Devices Assistive Device Gait Belt,Front Wheeled Walker Orthotic/Prosthetic Devices or Brace: No Gait Deviations General Gait Pattern Antalgic,Decreased Stride Length,Decreased Feet Clearance Factors Limiting Gait Function Factors Limiting Gait Function Decreased Activity Tolerance, Decreased Strength,Limited Range of Motion,Pain,Poor Balance Comments Gait Comments See mobility comments. Stair Climbing Assessment Comments Stair Climbing Comments Not assessed. No stairs at home. PT-Balance Assessment Sitting Balance and Reactions Static Sitting Balance Ability Normal Dynamic Sitting Balance Ability Normal Standing Balance and Reactions Static Standing Balance Ability Good Dynamic Standing Balance Ability Good Device Used FWW M5 PT-IP Objective Assessments Start: 03/28/20 15:26 Freq: NEEDED Status: Discharge Protocol: Document 03/29/20 11:05 DE (Rec: 03/29/20 11:43 DE [id number]) Orientation Orientation/Cognition Level of Alertness Alert Orientation Name,Age,Birthday,Month,Date, Year,Day of Week,Place, Situation Safety Awareness Understands Safety Issues Memory Description No Deficits Noted Gross Range of Motion Lower Extremity ROM Assessment Within Functional Limits Strength Lower Extremity Strength Assessment Within Functional Limits Coordination Assessment Gross Coordination Gross Coordination WNL Sensation Assessment Sensation Gross Sensation WNL Light Touch Intact Muscle Tone Muscle Tone WNL Yes M6 PT-IP Treatment Start: 03/28/20 15:26 Freq: NEEDED Status: Discharge Protocol: Document 03/30/20 11:51 KS (Rec: 03/30/20 16:03 KS [id number]) Physical Therapy Treatment Exercises Exercises Ankle Pumps,Gluteal Sets,Quad Sets,Heel Slides Education Education Provided Precautions,Post-Op Packet, Safety Other Treatments Other Treatment Performed Completed caregiver training w / pts son. Dispensed pt w/ FWW M7 PT-IP Assessment and Plan Start: 03/28/20 15:26 Freq: NEEDED Status: Discharge Protocol: Document 03/30/20 11:51 KS (Rec: 03/30/20 16:03 KS [id number]) PT Summary Assessment and Plan Potential Rehabilitation Potential Good Status of Condition at Evaluation Stable Summary Impairments Pain,ROM,Strength,Balance,Bed Mobility,Transfers,Gait, Activity Tolerance Progress Towards Goals Progressing Toward Goals Assessment Summary Successfully completed caregiver training w/ pt and pts son who was able to provide pt w/ correct cues and sequencing throughout treatment. Pt CGA for transfers, bed mobility, and ambulation today and tolerated ~120 ft ambulation w/ FWW. Pt and son state they feel safe to return home w/ son and daughter providing assistance. Goals Bed Mobility Goal Independent Transfer Goal Independent Gait Goal Independent Gait Distance 100 Days to Meet Goals 5 Frequency of Treatment Frequency Of Treatment Twice a Day Treatment Plan Physical Therapy Treatment Plan Bed Mobility Training,Transfer Training,Gait Training, Therapeutic Exercise,Post Op Education,Discharge Planning Recommendations To Nursing Amount of Assist Needed 1 Person Assist Discharge Recommendations PT Discharge Recommendations Home with Assistance Equipment Needed for Home Before FWW Discharge Transportation Needs at Discharge Private Vehicle
--- NOTE | 2020-03-30 13:56 | PC.NURSE ---
Pt dresed and ready for discharge home with Son. IV has been removed. Dsg to back was changed again because it was rolling up on the bottom. Went over d/c instruction with Pt and Son-discussed d/c meds, time of last dose, reviewed stroke education, back precautions, showering, icing, no driving while on narcotics, drink plenty of fluids to prevent constipation or dehydration,dressing to back, and follow up appointments. Pt and Son denied further questions and Pt was taken out via w/c by BENCH [employer]SEMBLY INSPECTOR to POV with Son and all belongings.
== END 2020-03-30 13:58 | disposition home or self-care (01) | DRG 455 ==
PROVIDERS: Specialist; Admitting Provider Orthopaedic Surgery; PCP Internal Medicine; Referring Provider Internal Medicine; Visit Provider Orthopaedic Surgery
PROC: 0SG00AJ Fusion of Lumbar Vertebral Joint with Interbody Fusion Device, Posterior Approach, Anterior Column, Open Approach (ICD-10-PCS; principal; 2020-03-28 07:45)
PROC: 0TJB8ZZ Inspection of Bladder, Via Natural or Artificial Opening Endoscopic (ICD-10-PCS; CPT 52000; 2020-03-28 07:45)
DX: M48.062 Spinal stenosis, lumbar region with neurogenic claudication (principal); M43.16 Spondylolisthesis, lumbar region; M47.816 Spondylosis without myelopathy or radiculopathy, lumbar region; I10 Essential (primary) hypertension; E78.5 Hyperlipidemia, unspecified; G47.33 Obstructive sleep apnea (adult) (pediatric); G62.9 Polyneuropathy, unspecified; N32.0 Bladder-neck obstruction; N36.5 Urethral false passage; R31.9 Hematuria, unspecified; E66.9 Obesity, unspecified; Z68.38 Body mass index [BMI] 38.0-38.9, adult; Z87.891 Personal history of nicotine dependence; Z85.46 Personal history of malignant neoplasm of prostate; Z11.59 Encounter for screening for other viral diseases
CPT/HCPCS: 36415; 72100; 76000; 81001; 85014; 85018; 87086; 87635; 94762; 97110; 97116; 97166; 97530; 97535; C1776; A9270; J0330; J0595; J0690; J1100; J1170; J2250; J2274; J2405; J2704; J3010; J3410

== ENCOUNTER → 2020-04-20 15:03 | Outpatient (CLI) | payer MEDICARE, OTHER, SELFPAY ==
[2020-03-28 15:20] VITALS: BMI 38.2
--- NOTE | 2020-04-20 | DI.CT.S_ITS ---
PROCEDURE: CT LUMBAR SPINE WO CON INDICATIONS: Spinal stenosis, lumbar region with neurogenic cla TECHNIQUE: Noncontrast 3 mm thick sections acquired from the T12 level to the sacrum. Sagittal and coronal reformats were constructed. For radiation dose reduction, the following was used: automated exposure control. COMPARISON: [facility] [place], CR, XR LUMBAR SPINE 2 OR 3 VIEWS, 04/19/2020, 16:10. FINDINGS: Image quality: Excellent. The study is performed without intrathecal contrast. Bones: There is normal bony alignment. No acute vertebral body compression fractures. No suspicious lytic or blastic bony lesions. Central spinal caliber is of normal overall caliber. No pars defects. T12-L1: Moderate degenerative disc disease with disc height reduction and endplate osteophyte formation greater anteriorly than posteriorly. No significant spinal stenosis, asymmetric right greater than left [id number] foraminal stenosis. L1-L2: Moderately severe degenerative disc disease, slight retrolisthesis of L1 on L2. No significant spinal stenosis. Minimal foraminal stenosis. L2-L3: Mild degenerative disc disease, a small posterior transverse disc bulge is present. Facet osteoarthritis is symmetric, with secondary mild foraminal stenosis. L3-L4: Mild degenerative disc disease, with a slight posterior disc bulge. Facet osteoarthritis is moderate as it is ligamentum flavum hypertrophy. These factors result in concentric spinal stenosis, moderately severe, and also bilateral moderately severe foraminal stenosis. L4-L5: Prior posterior fusion procedure with transverse pedicle screws and vertical fixation rods and also with what appears to be left greater than right bone fusion across the facet joint area. An interbody cage disc prosthesis is present, without displacement into the spinal canal. L5-S1: The lower aspect of the posterior fusion procedure at this level shows no evidence of device loosening or disruption. There is an interbody disc cage prosthesis at L5-S1, also without displacement. Grade 1 anterolisthesis of L5 on S1 is associated with moderate bilateral foraminal stenosis. Soft tissues: No retroperitoneal masses or hematomas. Visualized aorta is normal in caliber. IMPRESSION: Prior posterior spine fusion procedure L4-L5 and L5-S1. This is comprised of transverse pedicle screws and vertical fixation rods bilaterally at L4, L5, and S1. Interbody disc cage prosthesis devices are stable over time from prior plain film imaging. Spinal and foraminal stenosis is present, chronic in appearance, as discussed most prominent at the L 3-L4 level in terms of both spinal and foraminal stenosis. No operative complication seen. Dictated by: Mihai Hernandez M.D. on 04/20/2020 at 15:54 Approved by: Mihai Hernandez M.D. on 04/20/2020 at 16:16
== END ==
PROVIDERS: PCP Internal Medicine; Referring Provider Orthopaedic Surgery; Visit Provider Orthopaedic Surgery
DX: M48.062 Spinal stenosis, lumbar region with neurogenic claudication (principal); M48.07 Spinal stenosis, lumbosacral region; M43.17 Spondylolisthesis, lumbosacral region; Z98.1 Arthrodesis status
CPT/HCPCS: 72131

== ENCOUNTER → 2020-05-23 12:12 | Outpatient (CLI) | payer MEDICARE, OTHER, SELFPAY ==
[2020-03-28 15:20] VITALS: BMI 38.2
[2020-05-23 13:03] LABS: Add Manual Diff / Slide Review NO; Basophils Absolute Auto 100 /uL (0-100); Basophils Percent Auto 1.1 % (0-2); Eosinophils Absolute Auto 400 /uL (0-450); Eosinophils Percent Auto 6.8 % (2-4); Hematocrit 37.7 % (41-53); Hemoglobin 12.8 g/dL (13.5-17.5); Lymphocytes Absolute Auto 1300 /uL (1100-4500); Lymphocytes Percent Auto 24.4 % (25-40); Mean Corpuscular HGB Conc 34.1 % (30-36); Mean Corpuscular Volume 88.1 fL (80-100); Monocytes Absolute Auto 700 /uL (0-900); Monocytes Percent Auto 13.1 % (3-14); Neutrophils Absolute Auto 2900 /uL (1500-7000); Neutrophils Percent Auto 54.6 % (50-75); Platelet Count 237 X10^3/uL (150-400); Red Blood Cell Count 4.28 X10^6/uL (4.5-5.9); White Blood Cell Count 5.4 X10^3/uL (4.5-11.0)
== END ==
PROVIDERS: PCP Internal Medicine; Referring Provider Internal Medicine; Visit Provider Orthopaedic Surgery
DX: M54.5 Low back pain (principal); Z01.812 Encounter for preprocedural laboratory examination
CPT/HCPCS: 36415; 85025

== ENCOUNTER → 2020-05-31 08:27 | Outpatient (CLI) | payer MEDICARE, OTHER, SELFPAY ==
[2020-03-28 15:20] VITALS: BMI 38.2
[2020-05-31 11:05] LABS: COVID19 -Nasal RAPID Negative (Negative)
== END ==
PROVIDERS: PCP Internal Medicine; Visit Provider Nurse Practitioner
DX: Z20.822 Contact with and (suspected) exposure to COVID-19 (principal)
CPT/HCPCS: 87635; C9803

== ENCOUNTER 2020-06-01 09:11 | Day surgery (SDC) | payer MEDICARE, OTHER, SELFPAY ==
[2020-03-28 15:20] VITALS: BMI 38.2
[2020-06-01] VITALS (12 sets, daily range): BP systolic 105–127; BP diastolic 47–68; PULSE 48–72; RESP 8–16; TEMP 36.2–36.8; O2SAT 88–99; BMI 38.0
--- NOTE | 2020-06-01 | DI.RAD.S_ITS ---
PROCEDURE: XR LUMBAR SPINE 2-3V INDICATIONS: L5-S1 FORAMINOTOMY TECHNIQUE: 2 views of the lumbar spine were acquired. COMPARISON: [facility] [place], CR, XR LUMBAR SPINE 2 OR 3 VIEWS, 04/19/2020, 16:10. [facility], CR, XR LUMBAR SPINE 2-3V, 03/28/2020, 8:36. FINDINGS: Intraoperative localizers posterior to the S1 vertebral body. L4-S1 fixation hardware stable compared to prior exam. IMPRESSION: Intraoperative localizers posterior to the S1 vertebral body. Dictated by: Zarina Duval MD, PhD on 06/01/2020 at 17:06 Approved by: Zarina Duval MD, PhD on 06/01/2020 at 17:08
[2020-06-01] MEDS: LACTATED RINGERS 1,000 ML 42 ML IV (09:40)
[2020-06-01] MEDS: ACETAMINOPHEN 325 MG TABLET 975 MG PO (09:40)
--- NOTE | 2020-06-01 11:00 | PM.PREOP ---
Pre-operative Note COVID-19 COVID-19 status: Negative Result date/Date tested (Pos, Neg/Pending): 05/31/20 Interval Note History & Physical reviewed/Exam performed by Physician: Yes Changes to H&P: No
[2020-06-01] MEDS: CEFAZOLIN 2 GM/100 ML FROZ.PIGGY IV (11:52)
[2020-06-01] MEDS: VANCOMYCIN 1,000 MG VIAL 1000 MG TOP (12:48)
[2020-06-01] MEDS: BUPIVACAINE LIPOSOME 266 MG/20 ML VIAL INJ (12:48)
[2020-06-01] MEDS: SODIUM CHLORIDE 0.9% 1,000 ML, GENTAMICIN 80 MG IRR ×2 (12:49)
[2020-06-01] MEDS: THROMBIN (RECOMBINANT) 5,000 UNIT VIAL 5000 UNIT TOP (12:49)
[2020-06-01] MEDS: BUPIVACAINE 0.5% (PF) VIAL 30 ML INJ (12:51)
--- NOTE | 2020-06-01 13:23 | P.OP_ITS ---
Operative Date/Time/Diagnoses Date of procedure: 06/01/20 Time of procedure: 13:23 Pre-op diagnosis: Lumbar stenosis with radiculopathy History of lumbar fusion Post-op diagnosis: same Procedure & Clinicians Procedure: L5-S1 left-sided laminectomy and foraminotomy Use of microscope Removal of L4, L5, S1 screws and yu Same procedure as scheduled: Yes Indications: [age] year old male with intractable pain from lumbar stenosis. They had failed conservative management and requested operative intervention. Risks and benefits of surgery were discussed and appropriate consents were obtained. Surgeon: Tam White Associate Professor Of Art: Carmina Causey Anesthesia Type: General Operative Notes Findings: None Closure Type: primary Specimen(s): none sent Estimated Blood Loss (mL): 30 Procedure in detail: Patient was brought to the operating room and intubated on the table. A time-out was performed. There were rolled over the well-padded prone position on the Cl table. The back was prepped and draped in standard sterile fashion. Preoperative antibiotics were given. Using fluoroscopy, a 3 cm incision was made to the well marked left of the midline using his previous incision. We used Bovie to come down to and split the fascia. We then used fluoroscopy for guidance and dissected down to the screws. We cleared off the soft tissue around the screws from L4 through S1 and then removed the set screws, the yu, and then the pedicle screws so that we would be able to work in our field. We exposed the sacral ala and L5 transverse process and decorticated them with a bur. We then placed the NuVasive MaXcess retractor directly over the L5-S1 facet and opened this up and confirm positioning with fluoroscopy. We then brought in the microscope. A combination of high-speed bur and Kerrison were used to perform a left-sided hemilaminotomy complete facetectomy at L5-S1. We were able to clear out enough into the neural foramen that we could trace the exiting L5 root from the level above all the way out laterally past the pedicles of L5 and S1. A ball probe was used to confirm that everything was widely decompressed both medially and laterally. The wound was then copiously irrigated. All locally harvested bone graft was then placed at the posterolateral gutter to reinforce his fusion. The fascia was closed in layers. Vancomycin powder was placed in the wound. Superficial and skin were closed. Sterile dressing was placed. The patient was then rolled over, transferred to the stretcher, and brought to recovery room without complications. Complications: none Post-operative Condition: stable Disposition: PACU Plan for aftercare: Outpatient. Limited activity for 2 weeks and then may resume activity as tolerated.
[2020-06-01] MEDS: OXYCODONE IR 5 MG TABLET PO ×2 (13:54→15:05)
[2020-06-01] MEDS: HYDROMORPHONE 2 MG INJ IV (14:08)
--- NOTE | 2020-06-01 14:54 | SUR.PHASEII ---
Patient to phase II recovery in stable condition. Patient appears very drowsy and is not quite ready to go home. Patient rates pain 5/10. Notified patient's delivery driver/supervisor and also called his to update regarding progress. Patient states that the shooting pain in his leg and foot are better than pre-op.
[2020-06-01] MEDS: ONDANSETRON 4 MG/2 ML INJ IV (15:05)
== END 2020-06-01 15:39 | disposition home or self-care (01) ==
PROVIDERS: PCP Internal Medicine; Referring Provider Orthopaedic Surgery; Visit Provider Orthopaedic Surgery
PROC: (CPT 63047; principal; 2020-06-01 11:15)
DX: M48.062 Spinal stenosis, lumbar region with neurogenic claudication (principal); M54.16 Radiculopathy, lumbar region; Z98.1 Arthrodesis status; I10 Essential (primary) hypertension; G47.33 Obstructive sleep apnea (adult) (pediatric); G62.9 Polyneuropathy, unspecified; M54.30 Sciatica, unspecified side
CPT/HCPCS: 63047; 72100; 76000; 82962; C9290; J0330; J0690; J1170; J2405; J2704

== ENCOUNTER → 2020-09-13 19:17 | Outpatient (CLI) | payer MEDICARE, OTHER, SELFPAY ==
[2020-06-12 16:38] VITALS: BMI 38.2
--- NOTE | 2020-09-13 | DI.RAD.S_ITS ---
PROCEDURE: XR CHEST 2V INDICATIONS: CHEST TIGHTNESS TECHNIQUE: 2 views of the chest were acquired. COMPARISON: None. FINDINGS: Surgical changes and devices: None. Lungs and pleura: Scattered subsegmental scarring and/or atelectasis. No acute consolidation. No pleural effusions or pneumothorax. Low lung volumes Mediastinum: Mediastinal contours are normal. Heart size is normal. Bones and chest wall: No suspicious bony abnormalities. Soft tissues appear unremarkable. IMPRESSION: No acute disease. Dictated by: Francisco Moore M.D. on 09/14/2020 at 9:08 Approved by: Francisco Moore M.D. on 09/14/2020 at 9:08
== END ==
PROVIDERS: PCP Internal Medicine; Referring Provider Otolaryngology; Visit Provider Otolaryngology
DX: R07.89 Other chest pain (principal)
CPT/HCPCS: 71046

== ENCOUNTER → 2020-12-25 14:12 | Outpatient (CLI) | payer MEDICARE, OTHER, SELFPAY ==
[2020-06-12 16:38] VITALS: BMI 38.2
[2020-12-25 17:27] LABS: COVID19 -Nasal RAPID Negative (Negative)
== END ==
PROVIDERS: PCP Internal Medicine; Visit Provider Nurse Practitioner
DX: Z01.812 Encounter for preprocedural laboratory examination (principal); Z20.822 Contact with and (suspected) exposure to COVID-19
CPT/HCPCS: 87635; C9803

== ENCOUNTER → 2020-12-27 10:38 | Outpatient (CLI) | payer MEDICARE, OTHER, SELFPAY ==
[2020-06-12 16:38] VITALS: BMI 38.2
--- NOTE | 2020-12-28 18:08 | DI.NM.S_ITS ---
DATE OF SERVICE: 12/27/2020 PROCEDURE: Exercise perfusion study. INDICATIONS: Chest pain with underlying hypertension and hyperlipidemia. RADIOPHARMACEUTICAL: 24.0 millicurie technetium-99m Myoview IV was injected at stress and 26.0 millicurie technetium-99m Myoview IV was injected at rest. CARDIAC STRESS: The patient underwent exercise perfusion study under the supervision of an attending staff. The patient walked on Joe protocol for 6 minutes and achieved 88 percent of target heart rate, normal blood pressure response, 6.9 METS of workload and functional aerobic impairment -6 percent. No chest pain or anginal symptoms. Baseline EKG revealed sinus rhythm with first- degree AV block. During stress, there were some nonspecific ST-T changes. No significant arrhythmias seen. RAW DATA: There is increased subdiaphragmatic activity. GATED STUDY: Resting LV ejection fraction 71 percent and stress LV ejection fraction is 72 percent without any obvious wall motion abnormalities. Resting end-diastolic volume 112 mL. TID ratio 0.89, which is within normal limits. Lung/heart ratio 0.48, which is abnormal. MYOCARDIAL PERFUSION SCAN: Stress supine and resting supine and stress prone images were compared to each other. Stress supine and resting supine images revealed moderate-size, mild to moderately decreased perfusion of inferior wall extending into the inferolateral wall which got completely resolved during prone images suggestive of diaphragmatic tissue attenuation artifact. No convincing ischemia or infarction pattern seen. CONCLUSION: I will call this study likely a normal myocardial perfusion study with evidence of diaphragmatic tissue attenuation artifact ,as stated above, in prone images. Fair exercise tolerance. Normal hemodynamic response. Preserved left ventricular function. No convincing ischemic electrocardiographic changes. No significant arrhythmias. Overall, this is a low-risk myocardial perfusion scan. Dean Charles - KIESHA/giancarlo/artemio doc#: [id number]/job#: [id number] dd: 12/28/2020 17:47:00 dt: 12/28/2020 18:00:00 DICTATING MD/COPIES TO: Hyacinth Dumont MD COPIES MNE: NISHA;
== END ==
PROVIDERS: PCP Internal Medicine; Referring Provider Internal Medicine; Visit Provider Internal Medicine
DX: R07.9 Chest pain, unspecified (principal); I10 Essential (primary) hypertension; E78.5 Hyperlipidemia, unspecified
CPT/HCPCS: 78452; 93017; A9502

== ENCOUNTER → 2021-01-03 11:05 | Outpatient (CLI) | payer MEDICARE, OTHER, SELFPAY ==
[2020-06-12 16:38] VITALS: BMI 38.2
--- NOTE | 2021-01-03 11:09 | DI.CT.S_ITS ---
PROCEDURE: CT LUMBAR SPINE WO CON INDICATIONS: Low back pain TECHNIQUE: Noncontrast 3 mm thick sections acquired from the T12 level to the sacrum. Sagittal and coronal reformats were constructed. For radiation dose reduction, the following was used: automated exposure control. COMPARISON: [facility], MR, MR LUMBAR SPINE WO CON, 11/05/2019, 16:22. [facility], CR, XR LUMBAR SPINE 2 OR 3 VIEWS, 12/20/2020, 10:35. [facility], CR, XR LUMBAR SPINE 2 OR 3 VIEWS, 09/19/2020, 10:15. [facility], CT, CT LUMBAR SPINE WO CON, 04/20/2020, 15:09. FINDINGS: Image quality: Excellent. Bones: Postsurgical changes compatible with right L4-L5 and right L5-S1 TLIF. Orthopedic hardware is intact. No lucencies identified at the bone-hardware interface. There is trace L2-L3 and L3-L4 retrolisthesis. There is mild L1-L2 retrolisthesis. There is mild L4-L5 and L5-S1 anterolisthesis.. No acute vertebral body compression fractures. No suspicious lytic or blastic bony lesions. T12-L1: Loss of disc height. Vacuum disc phenomenon. Mild, diffuse disc bulge. No central stenosis. Moderate bilateral neural foraminal narrowing. No neural compression. L1-L2: Loss of disc height. Vacuum disc phenomenon. Moderate, diffuse disc bulge. Mild bilateral facet hypertrophy. Moderate narrowing of the central canal. Severe bilateral neural foraminal narrowing with compression of the exiting L1 nerve roots. L2-L3: Disc height is normal. Mild, diffuse disc bulge. Mild bilateral facet hypertrophy. Mild ligamentum flavum hypertrophy. Mild to moderate narrowing of the central canal. Moderate bilateral neural foraminal narrowing. No neural compression. L3-L4: Disc height is normal. Mild, diffuse disc bulge. Mild bilateral facet hypertrophy. Moderate ligamentum flavum hypertrophy. Moderate to severe narrowing of the central canal. Moderate bilateral neural foraminal narrowing. No neural compression. L4-L5: Status post fusion. Moderate left facet hypertrophy. No central stenosis. Severe left neural foraminal narrowing with compression of the exiting left L4 nerve root. L5-S1: Status post fusion. Mild right and moderate left facet hypertrophy. No central stenosis. Severe bilateral neural foraminal narrowing with compression of the exiting L5 nerve roots Soft tissues: No retroperitoneal masses or hematomas. Visualized aorta is normal in caliber. IMPRESSION: 1. Status post L4-S1 TLIF. 2. Multilevel degenerative disc disease. 3. Multilevel facet arthropathy. 4. Moderate to severe L3-L4 central canal narrowing. 5. Severe bilateral L1-L2 and L5-S1 neural foraminal narrowing with compression of the exiting bilateral L1 and L5 nerve roots. Severe left L4-L5 neural foraminal narrowing with compression of the exiting left L4 nerve root. Dictated by: Zarina Duval MD, PhD on 01/03/2021 at 14:04 Approved by: Zarina Duval MD, PhD on 01/03/2021 at 14:30
== END ==
PROVIDERS: PCP Internal Medicine; Referring Provider Orthopaedic Surgery; Visit Provider Orthopaedic Surgery
DX: M54.5 Low back pain (principal); M51.36 Other intervertebral disc degeneration, lumbar region; M47.816 Spondylosis without myelopathy or radiculopathy, lumbar region; M47.817 Spondylosis without myelopathy or radiculopathy, lumbosacral region; M48.061 Spinal stenosis, lumbar region without neurogenic claudication; M48.07 Spinal stenosis, lumbosacral region; Z98.1 Arthrodesis status
CPT/HCPCS: 72131

== ENCOUNTER 2021-12-04 07:17 | Outpatient (CLI) | payer MEDICARE, OTHER, SELFPAY ==
[2020-06-12 16:38] VITALS: BMI 38.2
[2021-12-04] VITALS (9 sets, daily range): BP systolic 124–150; BP diastolic 53–100; PULSE 53–59; RESP 16–20; TEMP 36.4–36.6; O2SAT 97–99; BMI 37.2
--- NOTE | 2021-12-04 | DI.RAD.S_ITS ---
PROCEDURE: FL INJECT SPINE FOR CT MYELO INDICATIONS: SPINAL CORD COMPRESSION COMPARISON: [facility], CT, CT LUMBAR SPINE WO CON, 01/03/2021, 11:12. TECHNIQUE: The indications, alternatives, benefits, risks and complications of the procedure were explained to the patient. Written informed consent was obtained and placed in the chart. The patient was placed in a prone position on the fluoroscopy table, and a level was chosen for percutaneous access under fluoroscopic guidance. The skin was prepped and draped in a sterile fashion. After local anaesthetic, a spinal needle was then used to enter the intrathecal space, with return of clear cerebrospinal fluid. 10 mL of Isovue M-200 were administered intrathecally under fluoroscopic visualization. The needle was then withdrawn, and a bandage applied to the puncture site. FINDINGS: Lumbosacal fusion hardware is present, partially imaged. Access level: L3-L4 Medications: 1% lidocaine for local anaesthesia. Complications: None. Patient was transferred to CT for subsequent CT myelogram. IMPRESSION: Successful fluoroscopically guided administration of iodinated contrast into the lumbar spine central canal for CT myelogram. Dictated by: Thony Burton M.D. on 12/04/2021 at 11:15 Approved by: Thony Burton M.D. on 12/04/2021 at 11:23
--- NOTE | 2021-12-04 | DI.CT.S_ITS ---
PROCEDURE: CT LUMBAR MYELOGRAM INDICATIONS: SPINAL CORD COMPRESSION TECHNIQUE: After the intrathecal administration of 15 mL intrathecal contrast, 3 mm thick sections acquired from T12 to the sacrum. Sagittal and coronal reformats were then constructed. For radiation dose reduction, the following was used: automated exposure control. COMPARISON: None. FINDINGS: Postsurgical changes L4-S1 fixation by means of unilateral right sided pedicle screws and stabilizing yu along with interbody devices. No osseous fusion at the operative levels. Anterolisthesis of L4 on L5 measuring 7 mm and of L5 on S1 measuring 8 mm. Exaggerated lordosis. Otherwise normal alignment. Vertebral body heights maintained. No suspicious focal marrow signal abnormality or bone marrow edema. 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 At T12-L1, mild spinal canal stenosis due to posterior osteophytic ridging of the endplates and diffuse disc bulge along with buckling of the ligamentum flavum and facet hypertrophy. There appears to be a superimposed disc extrusion in the right paracentral and subarticular zones which displaces and may impinge upon the descending right L1 nerve roots. Moderate right and mild left neural foraminal stenosis. A far left lateral disc protrusion/extrusion mildly displaces the exiting left T12 nerve roots. At L1-L2, moderate spinal canal stenosis due to diffuse disc bulge and a superimposed broad-based posterior disc protrusion along with buckling of the ligamentum flavum. Foraminal components of the disc bulge and facet hypertrophy combine to produce moderate bilateral neural foraminal stenosis. At L2-L3, diffuse disc bulge and a superimposed broad-based posterior disc protrusion flattens and indents the ventral thecal sac with displacement of the bilateral descending L3 nerve roots, right greater than left. Foraminal components of the disc bulge and facet hypertrophy combine to produce moderate bilateral neural foraminal stenosis, more pronounced on the left. At L3-L4, severe spinal canal stenosis due to a combination of diffuse disc bulge and superimposed broad-based posterior disc protrusion with buckling of the ligamentum flavum and facet hypertrophy. Complete effacement of CSF within the thecal sac and crowding of the traversing nerve roots. Moderate bilateral neural foraminal stenosis due to these factors. At L4-L5, no spinal canal stenosis. Mild right and moderate left neural foraminal stenosis. Right hemilaminotomy and medial facetectomy changes. At L5-S1, diffuse disc bulge with displacement of the descending right S1 nerve roots producing possible impingement. Severe bilateral neural foraminal stenosis with flattening of the exiting L5 nerve roots. IMPRESSION: Multilevel multifactorial degenerative changes as detailed above. Dictated by: Efren Milton M.D. on 12/04/2021 at 14:30 Approved by: Efren Milton M.D. on 12/04/2021 at 14:35
[2021-12-04 09:12] LABS: Hematocrit 39.7 % (41-53); Hemoglobin 13.7 g/dL (13.5-17.5); Mean Corpuscular HGB Conc 34.5 % (30-36); Mean Corpuscular Volume 89.9 fL (80-100); Platelet Count 192 X10^3/uL (150-400); Prothrombin Time 11.8 SECONDS (10.1-12.7); Red Blood Cell Count 4.42 X10^6/uL (4.5-5.9); Red Cell Distribution Width 13.8 % (11.6-14.8); White Blood Cell Count 4.5 X10^3/uL (4.5-11.0)
[2021-12-04 10:09] LABS: Neutrophils Absolute Manual 2565 /uL (3000-5900); RBC Morphology Normal Morphology; Total Cells Counted 100
--- NOTE | 2021-12-04 14:50 | SUR.PHASEII ---
late entry: stable phase two, bandaid to back c/d/i, pt drinking lots of fluids. left when able, left in stable condition.
== END 2021-12-04 12:20 | disposition home or self-care (01) ==
PROVIDERS: PCP Internal Medicine; Referring Provider Internal Medicine; Visit Provider Internal Medicine
DX: G95.20 Unspecified cord compression (principal); M47.816 Spondylosis without myelopathy or radiculopathy, lumbar region; M54.50 Low back pain, unspecified
CPT/HCPCS: 36415; 62284; 72133; 77003; 85025; 85610

== ENCOUNTER 2022-01-22 08:00 | Outpatient (CLI) | payer MEDICARE, OTHER, SELFPAY ==
[2020-06-12 16:38] VITALS: BMI 38.2
[2022-01-22] VITALS (9 sets, daily range): BP systolic 107–150; BP diastolic 53–97; PULSE 51–66; RESP 13–20; TEMP 36.4; O2SAT 96–99
--- NOTE | 2022-01-22 08:01 | DI.RAD.S_ITS ---
PROCEDURE: PAIN C/T INTERLAMINAR INJECT INDICATIONS: SPONDYLOSIS COMPARISON: None. FINDINGS: Fluoroscopic spot filming was performed to verify placement of spinal needles at the lumbar level(s), as labeled on the films. Appropriate location(s) of the needle tip(s) was confirmed by injection of iodinated contrast. IMPRESSION: Needle placement at the lumbar level Dictated by: Crow Robbins M.D. on 01/22/2022 at 13:21 Approved by: Crow Robbins M.D. on 01/22/2022 at 13:21
[2022-01-22 08:56] LABS: COVID19 -Nasal RAPID Negative (Negative)
[2022-01-22] MEDS: MIDAZOLAM 2 MG/2 ML VIAL IV (09:28)
[2022-01-22] MEDS: BUPIVACAINE 0.25% (PF) VIAL 2 ML INJ (09:34)
[2022-01-22] MEDS: DEXAMETHASONE 10 MG/ML VIAL 20 MG INJ (09:34)
[2022-01-22] MEDS: IOPAMIDOL 15 ML VIAL 3 ML INJ (09:37)
--- NOTE | 2022-01-22 09:47 | P.PCN_ITS ---
Date/Time/Diagnoses Date of procedure: 01/22/22 Time of procedure: 09:48 Pre-procedure diagnosis: Thoracic stenosis with HNP Post-procedure diagnosis: same Procedure Notes Procedure: Fluoroscopic guided, contrast controlled T12/L1 translaminar epidural steroid injection with conscious sedation. Indications: Dean is referred by Dr. Wade for treatment of thoracic DDD/DJD with radiculopathy Physician: Jose Martinez Total Fluoroscopy time (seconds): 11 Total sedation minutes: 12 Complications: none Procedure in detail & Post-procedure care: DESCRIPTION OF PROCEDURE Fluoroscopic guided, contrast controlled T12/L1 translaminar epidural steroid injection with conscious sedation. Following review of allergy review potential side effects and complications, including, but not necessarily limited to, infection, allergic reaction, local tissue breakdown, temporary as well as permanent nerve injury, stroke, paralysis and possible , the patient indicated that they understood and agreed to proceed. An informed consent document was signed by the patient, witnessed by the nurse, and placed in the patient's chart. Additionally other treatment options including modalities, medications and physical therapy were reviewed with the patient. After review of previous anaesthesic history and IV conscious sedation the patient was deemed safe to proceed with today's procedure with IV conscious sedation as ASA class II designation. Safety time-out was performed to confirm patient ID, procedure to be performed and site of procedure. IV sedation was accomplished with a combination of 2mg of Versed administered by the RN after DO order, titrated to patient comfort during the course of the procedure while the patient remained responsive to all verbal commands In the prone position, following sterile prep and drape of the thoracic region the T12/L1 translaminar space was identified fluoroscopically. The skin was anesthetized via 25 gauge 1.5inch needle with 1% lidocaine solution. At this po int a 22gauge epidural needle was atraumatically introduced and advanced under fluoroscopic guidance into the region of the T8-9 translaminar space depth was confirmed on lateral view. Radiographic data, including multiple fluoroscopic views of the thoracic spine, reveals spinal needle at the T12/L1 translaminar space. Lateral views then showed the placement of the needle in the epidural space. Subsequent view show contrast material flowing superiorly and inferiorly in the epidural space. No vascular or intrathecal uptake is observed. At this point using loss of resistance technique with saline and the epidural space was entered. This was confirmed followed negative aspiration and injection of approximately 1.5cc of Isovue 200 showed excellent epidural flow without vascular or intrathecal uptake. At this point, 1cc of 1% lidocaine solution was admitted as a test dose and the patient was observed for an appropriate period of time without signs or symptoms of complications, including abdominal pain, shortness of breath, bilateral upper and lower extremity weakness, nausea and vomiting, prior to steroid injection. Subsequently, 3cc or 30mg of dexamethasone was then injected without incident. The patient tolerated the procedure well without signs of complications and subsequently was transferred to the recovery room for further monitoring. The patient was then transferred to the recovery area with their observed for an appropriate time after the injection. Patient reported a VAS score of 7 prior to the procedure and post-procedure VAS of 2.
== END 2022-01-22 10:05 | disposition home or self-care (01) ==
LOC: RAD 08:01
PROVIDERS: PCP Internal Medicine; Referring Provider Physical Medicine & Rehabilitation; Visit Provider Physical Medicine & Rehabilitation
DX: M48.062 Spinal stenosis, lumbar region with neurogenic claudication (principal); M47.814 Spondylosis without myelopathy or radiculopathy, thoracic region; Z20.822 Contact with and (suspected) exposure to COVID-19
CPT/HCPCS: 62321; 87635; 99152; J1100; J2250; J3490

== ENCOUNTER → 2024-12-16 13:41 | Outpatient (CLI) | payer MEDICARE, OTHER, SELFPAY ==
[2022-03-06 09:27] VITALS: BMI 38.2
--- NOTE | 2024-12-16 13:43 | DI.ECHO.S_ITS ---
[place] +---------+ [facility] : : [address] : : [place] : : [id number] : : Phone: [phone] Echocardiogram Report + + :Name: ZULEMA YING Study Date: 12/16/2024 Height: 68 in : :Hospital ReadingLocation: Weight: 245 lb : : Gender: Male BSA: 2.2 m2 : :: 1945 Age: 79 yrs BP: 168/79 mmHg: :Reason For Study: CHEST PAIN : :Ordering Physician: SELMA, : :MELODY Irwin Performed By: Efren Zaidi : :Referring: MELODY LARSEN : + + Interpretation Summary The patient was in sinus bradycardia with heart rates between 48-51 bpm during the exam. The ejection fraction is estimated to be 55-60%. Diastolic function is indeterminate. The left atrium is moderately dilated. The right ventricle is mildly dilated. The right ventricular systolic function is normal. There is mild aortic regurgitation. The right ventricular systolic pressure is estimated to be at least 36 mmHg based on an estimated right atrial pressure of 8 mm Hg. The ascending aorta is mildly enlarged. Procedure: A two-dimensional transthoracic echocardiogram with color flow and Doppler was performed. The study quality was technically good. There is no prior echocardiogram noted for this patient. The patient was in sinus bradycardia with heart rates between 48-51 bpm during the exam. Left Ventricle: The left ventricle is normal in size. There is normal left ventricular wall thickness. There is no ventricular septal defect visualized. The ejection fraction is estimated to be 55-60%. There are no focal wall motion abnormalities. Diastolic function is indeterminate. Right Ventricle: The right ventricle is mildly dilated. The right ventricular systolic function is normal. Atria: The left atrium is moderately dilated. Right atrial size is normal. There is no Doppler evidence for an interatrial shunt. Mitral Valve: The mitral valve leaflets appear normal. There is no evidence of stenosis, fluttering, or prolapse. There is trace mitral regurgitation. Aortic Valve: The aortic valve is trileaflet. The aortic valve opens well. There is no aortic valve stenosis. There is mild aortic regurgitation. Tricuspid Valve: The tricuspid valve leaflets are thin and pliable. There is trace tricuspid regurgitation. The right ventricular systolic pressure is estimated to be at least 36 mmHg based on an estimated right atrial pressure of 8 mm Hg. Pulmonic Valve: The pulmonic valve leaflets are thin and pliable; valve motion is normal. There is mild pulmonic regurgitation. Great Vessels: The aortic root is normal size. The ascending aorta is mildly enlarged. The pulmonary artery is normal size. The IVC is dilated (diameter is greater than 2.1 cm) yet it collapses greater than 50% with a sniff. This suggests a right atrial pressure of 8 mm Hg. Pericardium/ Pleura There is no pericardial effusion. There is no pleural effusion. MMode/2D Measurements & Calculations LVIDd: 5.6 cm LVOT diam: 2.3 cm LVIDs: 4.0 cm Ao root diam: 4.1 cm FS: 29.6 % asc Aorta Diam: 4.0 cm EPSS: 0.82 cm IVSd: 0.95 cm LVPWd: 1.1 cm LV boo. diameter/BSA (cm/m^2): 2.5 LV sys. diameter/BSA (cm/m^2): 1.8 LA A2 area: 27.6 cm2 RA long axis: 5.4 cm LA A4 area: 27.0 cm2 RA area: 17.9 cm2 LA length (vol): 6.5 cm RA vol: 50.3 ml LA vol: 96.8 ml RA : 22.6 ml/m2 LA vol index: 43.4 ml/m2 IVC diam: 2.1 cm RVD1 (basal): 4.5 cm RVD2 (mid): 3.6 cm TAPSE: 3.5 cm Doppler Measurements & Calculations Ao V2 max: 132.2 cm/sec LVOT Max Dandre: 110.2 cm/sec Ao V2 mean: 99.3 cm/sec LV V1 max P.9 mmHg Ao max P.0 mmHg LV V1 VTI: 29.1 cm Ao mean P.2 mmHg JESSICA(I,D): 3.6 cm2 Ao V2 VTI: 33.6 cm JESSICA(V,D): 3.5 cm2 sev ratio: 0.87 JESSICA indexed to BSA (cm^2/m^2): 1.6 MV E max dandre: 103.2 cm/sec TR max dandre: 266.8 cm/sec MV A max dandre: 56.4 cm/sec TR max P.5 mmHg MV E/A: 1.8 PA V2 max: 132.5 cm/sec Med Peak E' Dandre: 6.3 cm/sec PA V2 mean: 81.7 cm/sec E/E' med: 16.3 PA mean P.1 mmHg Lat Peak E' Dandre: 8.6 cm/sec PA pr(Accel): 49.9 mmHg E/E' lat: 11.9 E/e' average: 14.1 MV dec time: 0.22 sec SV(OT): 121.6 ml Reading Physician:10:42 AM
== END ==
PROVIDERS: PCP Internal Medicine; Referring Provider Internal Medicine; Visit Provider Internal Medicine Cardiovascular Disease
DX: I35.1 Nonrheumatic aortic (valve) insufficiency (principal); I37.1 Nonrheumatic pulmonary valve insufficiency; R07.9 Chest pain, unspecified; I77.810 Thoracic aortic ectasia
CPT/HCPCS: 93306

== ENCOUNTER → 2025-02-21 10:19 | Outpatient (CLI) | payer MEDICARE, OTHER, SELFPAY ==
[2024-12-22 14:07] VITALS: BMI 38.2
--- NOTE | 2025-02-21 10:21 | DI.RAD.S_ITS ---
PROCEDURE: XR LUMBAR SPINE MIN 4V INDICATIONS: s/p fusion TECHNIQUE: 5 views of the lumbar spine acquired, including flexion and extension views. COMPARISON: [facility], , XR LUMBAR SPINE 2-3V, 06/01/2020, 12:25. FINDINGS: Lumbar spine curvature and alignment: Slight leftward curve lower thoracic and lumbar spine appreciated. There is also accentuation of the normal kyphotic curve. Bones: Moderate T8 through L1 wedging with endplate irregularity due to chronic Scheuermann's disease from disc degeneration. No change Disc spaces: L4-5 L5-S1 anterior/posterior fusion provided interbody spacers pedicle screws short interbody struts. 1 cm of persistent L5 anterior subluxation. . Severe T8-9 through L1-2 and moderate L2-3 degenerative disc disease noted. Severe L3- 4 through L5-S1 degenerative facet disease . Soft tissues: Spinal stimulator electrodes overlie the posterior epidural space T8 through T10 with lead wires extending through the T12-L1 interlaminar region. No complication IMPRESSION: L4-5 and L5-S1 anterior/posterior fusion with 1 cm persistent L5 anterior subluxation. No change. Moderate chronic wedging T8 through L1 vertebral body with endplate irregularity compatible chronic Scheuermann's disease-stable Multilevel degeneration-progressing Dictated by: Satish Knox M.D. on 02/22/2025 at 9:41 Approved by: Satish Knox M.D. on 02/22/2025 at 9:45
== END ==
PROVIDERS: PCP Family Medicine; Referring Provider Physical Medicine & Rehabilitation; Visit Provider Physical Medicine & Rehabilitation
DX: M47.27 Other spondylosis with radiculopathy, lumbosacral region (principal); M47.26 Other spondylosis with radiculopathy, lumbar region; M51.16 Intervertebral disc disorders with radiculopathy, lumbar region; M48.062 Spinal stenosis, lumbar region with neurogenic claudication; M43.5X6 Other recurrent vertebral dislocation, lumbar region; M48.55XA Collapsed vertebra, not elsewhere classified, thoracolumbar region, initial encounter for fracture; M51.34 Other intervertebral disc degeneration, thoracic region; Z96.82 Presence of neurostimulator; Z98.1 Arthrodesis status; M47.816 Spondylosis without myelopathy or radiculopathy, lumbar region; Z85.46 Personal history of malignant neoplasm of prostate; M89.8X1 Other specified disorders of bone, shoulder; G47.33 Obstructive sleep apnea (adult) (pediatric); M48.061 Spinal stenosis, lumbar region without neurogenic claudication; M43.17 Spondylolisthesis, lumbosacral region; G57.32 Lesion of lateral popliteal nerve, left lower limb
CPT/HCPCS: 72110; 99214

== ENCOUNTER 2025-04-07 13:21 | Outpatient (CLI) | payer MEDICARE, OTHER, SELFPAY ==
[2024-12-22 14:07] VITALS: BMI 38.2
[2025-04-07] VITALS (9 sets, daily range): BP systolic 120–172; BP diastolic 56–78; PULSE 54–67; RESP 15–18; TEMP 36.2; O2SAT 96–99
[2025-04-07] MEDS: MIDAZOLAM 2 MG/2 ML VIAL IV (14:51)
[2025-04-07] MEDS: BETAMETHASONE 30 MG/5 ML MDV 12 MG INJ (14:55)
--- NOTE | 2025-04-07 15:05 | P.PCN_ITS ---
Date/Time/Diagnoses Date of procedure: 04/07/25 Time of procedure: 15:05 Pre-procedure diagnosis: 1. HNP WITH RADICULAR FEATURES, 2. MULTILEVEL CENTRAL STENOSIS, Post-procedure diagnosis: same Procedure Notes Procedure: 1. FLUOROSCOPICALLY GUIDED CONTRAST CONTROLLED INTERLAMINAR EPIDURAL STEROID INJECTION - L5/S1 Indications: Dean is referred by Dr. Bar for treatment of Bilateral Foraminal Stenosis L>R LE symptoms. Physician: Jose Martinez Total Fluoroscopy time (seconds): 9 Total sedation minutes: 10 Complications: none Procedure in detail & Post-procedure care: FINDINGS Multilevel Central Spinal Stenosis with Nerve Root Compression DESCRIPTION OF PROCEDURE Fluoroscopically guided, contrast-controlled L5/S1 translaminar epidural steroid injection. Following review of allergy and review of potential side effects and complications, including, but not necessarily limited to, infection, allergic reaction, local tissue breakdown, temporary as well as permanent nerve injury, paralysis, stroke and possible , the patient indicated that the patient understood and agreed to proceed. An informed consent document was signed by the patient, witnessed by a nurse, and placed in the patient's chart. Additionally, other treatment options including modalities, medications, and physical therapy were reviewed with the patient. After review of previous anaesthesic history and IV conscious sedation the patient was deemed safe to proceed with today?s procedure with IV conscious sedation as ASA class II designation. Safety time-out was performed to confirm patient ID, procedure to be performed and site of procedure. IV sedation was accomplished with a combination of 2mg of Versed administered by the RN after DO order, titrated to patient comfort during the course of the procedure while the patient remained responsive to all verbal commands. In the prone position, following sterile prep and drape of the lumbar region, the L5/S1 translaminar space was identified fluoroscopically. The skin was anesthetized via a 25-gauge, 1.5-inch needle with 1% lidocaine solution. At this point, a 22-gauge short bevel spinal needle was atraumatically introduced and advanced under fluoroscopic guidance into the region of the L5/S1 translaminar space. Depth was confirmed on lateral view. Radiological data, including multiple fluoroscopic views of the lumbar spine, reveal a spinal needle at the L5/S1 translaminar space. Lateral views then show placement of the needle in the epidural space. Subsequent views show contrast material flowing superiorly and inferiorly in the epidural space. No vascular or intrathecal uptake is observed. At this point, using loss of resistance technique with saline and air, the epidural space was entered. This was confirmed following negative aspiration with injection of approximately 1.5cc of Isovue 200, showing excellent epidural flow without vascular or intrathecal uptake. At this point, 1cc of 0.25% citlaly ine solution combined with 3cc or 10mg of dexamethasone and 12mg of betamethasone was injected without incident. The patent tolerated the procedure without signs of symptoms of complications prior to transfer to the recovery area for further monitoring. The patient was then transferred to the recovery area where they were observed for an appropriate period of time after the injection. The patient reported a VAS score of 8 prior to the procedure and a post-procedure VAS of 1. POST OP INSTRUCTIONS The patient was provided a Pain Log to continue to record their response to the target-specific procedure prior to follow-up visit with their referring physician. Additionally, specific post-injection care instructions and a contact number to our office were provided if concerns arise regarding possible complications associated with the procedure are suspected.
== END 2025-04-07 15:28 | disposition home or self-care (01) ==
LOC: RAD 13:23
PROVIDERS: PCP Family Medicine; Referring Provider Physical Medicine & Rehabilitation; Visit Provider Physical Medicine & Rehabilitation
DX: M51.17 Intervertebral disc disorders with radiculopathy, lumbosacral region (principal); M48.07 Spinal stenosis, lumbosacral region
CPT/HCPCS: 62323; 99152; J0702; J1100; J2250

== ENCOUNTER → 2025-04-21 14:38 | Outpatient (CLI) | payer MEDICARE, OTHER, SELFPAY ==
[2024-12-22 14:07] VITALS: BMI 38.2
--- NOTE | 2025-04-21 14:39 | DI.CT.S_ITS ---
PROCEDURE: CT THORACIC SPINE WO CON INDICATIONS: pain and weakness w hx of fx TECHNIQUE: Noncontrast 3 mm thick sections acquired through the region of interest in the thoracic spine. Sagittal and coronal reformats were then constructed. For radiation dose reduction, the following was used: automated exposure control. COMPARISON: [facility], CR, XR CHEST 2V, 09/13/2020, 19:33. FINDINGS: Image quality: Excellent. Exaggerated thoracic kyphosis. Multilevel chronic wedging in the lower thoracic spine with large bridging marginal osteophytes similar to prior examination. Spinal stimulator lead with tip at the T7 level within the spinal canal. No acute fracture or aggressive osseous lesion. Moderate coronary calcification. No paraspinal mass. Left midline upper back 2.7 cm skin cyst. Included portions of the lungs are clear. IMPRESSION: No acute abnormality. Dictated by: Imtiaz Gan M.D. on 04/21/2025 at 17:06 Approved by: Imtiaz Gan M.D. on 04/21/2025 at 17:09
--- NOTE | 2025-04-21 14:39 | DI.CT.S_ITS ---
PROCEDURE: CT LUMBAR SPINE WO CON INDICATIONS: pain and weakness w hx of fx TECHNIQUE: Noncontrast 3 mm thick sections acquired from the T12 level to the sacrum. Sagittal and coronal reformats were constructed. For radiation dose reduction, the following was used: automated exposure control. COMPARISON: [facility], CT, CT LUMBAR MYELOGRAM, 12/04/2021, 10:29. [facility], CT, CT LUMBAR SPINE WO CON, 01/03/2021, 11:12. FINDINGS: Right L4-S1 posterior spinal fusion with instrumentation. No change in alignment. No hardware failure. L4-L5 and L5-S1 interbody cages , also unchanged alignment. Retrolisthesis at L3-L4, L2-L3, L1-L2, unchanged. Severe degenerative disc height loss at T12-L1, progressed from prior examination. Severe degenerative disc height loss at L1-L2, progressed from prior examination. Spinal stimulator leads enter at the T12 level. T12-L1: Mild spinal canal stenosis, moderate right and left and mild left neural foraminal stenosis, unchanged. L1-L2: Moderate central canal stenosis, unchanged. Moderate bilateral foraminal stenosis, unchanged. L2-L3: No central canal stenosis. Moderate bilateral foraminal stenosis, unchanged. At L3-L4: Severe central canal stenosis. Moderate bilateral foraminal stenosis, unchanged. L4-L5: No central canal stenosis. Mild right and moderate left foraminal stenosis. L5-S1: No central canal stenosis. Severe bilateral foraminal stenosis. Atherosclerosis. Diverticulosis. IMPRESSION: Progressive degenerative change at the T12-L1 and L1-L2 levels with similar spinal canal stenosis given differences in technique. Dictated by: Imtiaz Gan M.D. on 04/21/2025 at 17:09 Approved by: Imtiaz Gan M.D. on 04/21/2025 at 17:18
== END ==
LOC: CT 14:39
PROVIDERS: PCP Family Medicine; Referring Provider Physical Medicine & Rehabilitation; Visit Provider Physical Medicine & Rehabilitation
DX: M47.27 Other spondylosis with radiculopathy, lumbosacral region (principal); M47.815 Spondylosis without myelopathy or radiculopathy, thoracolumbar region; M47.816 Spondylosis without myelopathy or radiculopathy, lumbar region; M48.062 Spinal stenosis, lumbar region with neurogenic claudication; M48.07 Spinal stenosis, lumbosacral region; M43.17 Spondylolisthesis, lumbosacral region; S22.080S Wedge compression fracture of T11-T12 vertebra, sequela; I25.10 Atherosclerotic heart disease of native coronary artery without angina pectoris; Z96.82 Presence of neurostimulator; Z98.1 Arthrodesis status; Z85.46 Personal history of malignant neoplasm of prostate; Z98.890 Other specified postprocedural states
CPT/HCPCS: 72128; 72131